=== PATIENT | male | born 1960 | race Two or more races ===

== ENCOUNTER 2021-01-22 10:53 | Emergency (ER) | payer MEDICARE ==
[~2021-01-22] VITALS: Ht 167.6 cm; Wt 81.6 kg
[2021-01-22 12:42] VITALS: BP 129/98
[2021-01-22] MEDS ORDERED: ACETAMINOPHEN 500 MG TAB PO ONE ×2 (13:12→13:15)
== END 2021-01-22 14:16 | disposition home or self-care (01) ==
LOC: ER 10:53
DX: G44.209 Tension-type headache, unspecified, not intractable (principal); H81.10 Benign paroxysmal vertigo, unspecified ear
CPT/HCPCS: 70450; 93005

== ENCOUNTER 2022-01-29 10:57 | Emergency (ER) | payer MEDICARE, OTHER ==
[~2022-01-29] VITALS: Ht 167.6 cm; Wt 77.5 kg
[2022-01-29] MEDS: METOCLOPRAMIDE HCL 5MG/ml INJ 2ml VIAL IV ONE (13:00)
[2022-01-29] MEDS: SODIUM CHLORIDE 0.9% 1,000 ML IV ONE (13:44)
[2022-01-29 13:58] LABS: Calcium 8.4 mg/dL (8.5-10.1); Magnesium 2.4 mg/dL (1.6-2.6); Potassium 3.6 mmol/L (3.5-5.1)
[2022-01-29 14:00] LABS: Basophils # (auto) 0 10 ^3/uL (0-0.2); Basophils % (auto) 0.6 % (0.0-2.0); Bilirubin, Total 0.6 mg/dL (0.2-1.0); Eosinophils # (auto) 0.1 10 ^3/uL (0-0.8); Hematocrit 42.9 % (41.0-53.0); Hemoglobin 14.6 g/dL (13.5-17.5); Lymphocytes # (auto) 2.2 10 ^3/uL (0.4-5.4); Lymphocytes % (auto) 30.6 % (10.0-50.0); Mean Corpuscular Hemoglobin 30.2 pg (28.0-32.0); Mean Corpuscular Volume 88.8 fL (80.0-100.0); Monocytes # (auto) 0.4 10 ^3/uL (0-1.3); Monocytes % (auto) 4.9 % (0.0-12.0); Neutrophils # (auto) 4.6 10 ^3/uL (1.6-8.6); Neutrophils % (auto) 62.9 % (37.0-80.0); Nucleated Red Blood Cells % 0.1 %; Red Blood Cells 4.83 10^6/uL (4.5-5.90); Red Cell Distribution Width 13.9 % (11.8-14.3); Total Protein 7.1 g/dL (6.4-8.2); White Blood Cell 7.3 10^3/uL (4.4-10.8)
[2022-01-29 14:39] LABS: Urine Bacteria NONE SEEN /hpf (None Seen); Urine Blood Negative /uL (Negative); Urine Mucus FEW (None Seen); Urine Specific Gravity 1.036 (1.001-1.035); Urine WBC 1 /hpf (0 - 3)
[2022-01-29 15:36] VITALS: BP 107/74
[2022-01-29] MEDS ORDERED: METO-281 PO (16:38)
[2022-01-29] MEDS ORDERED: TRAM50TA2 PO (16:38)
== END 2022-01-29 17:06 | disposition home or self-care (01) ==
LOC: ER 10:57
DX: K42.9 Umbilical hernia without obstruction or gangrene (principal); K40.20 Bilateral inguinal hernia, without obstruction or gangrene, not specified as recurrent; D29.1 Benign neoplasm of prostate; N28.1 Cyst of kidney, acquired; R35.0 Frequency of micturition
CPT/HCPCS: 36415; 71046; 74176; 80053; 81001; 83690; 83735; 85025; 93005; 96360; 96361; 99285; J7030

== ENCOUNTER 2023-07-10 09:51 | Inpatient (IN) | payer OTHER, MEDICAID ==
[~2023-07-10] VITALS: Ht 167.6 cm; Wt 80.4 kg
[~2023-07-10 09:51] MED LIST: METO-281 PO; TRAM50TA2 PO
[2023-07-10 11:06] LABS: Basophils # (auto) 0.1 10 ^3/uL (0-0.2); Basophils % (auto) 0.9 % (0.0-2.0); Eosinophils # (auto) 0.1 10 ^3/uL (0-0.8); Eosinophils % (auto) 1.1 % (0.0-7.0); Hematocrit 46.4 % (41.0-53.0); Hemoglobin 15.2 g/dL (13.5-17.5); Lymphocytes # (auto) 1.9 10 ^3/uL (0.4-5.4); Lymphocytes % (auto) 30.5 % (10.0-50.0); Mean Corpuscular Hemoglobin 29.5 pg (28.0-32.0); Mean Corpuscular Hgb Conc. 32.8 g/dL (32.0-36.0); Mean Corpuscular Volume 89.9 fL (80.0-100.0); Monocytes # (auto) 0.4 10 ^3/uL (0-1.3); Monocytes % (auto) 5.6 % (0.0-12.0); Neutrophils # (auto) 3.9 10 ^3/uL (1.6-8.6); Neutrophils % (auto) 61.9 % (37.0-80.0); Red Blood Cells 5.17 10^6/uL (4.5-5.90); Red Cell Distribution Width 13.5 % (11.8-14.3); White Blood Cell 6.4 10^3/uL (4.4-10.8)
[2023-07-10 11:33] LABS: Urine Bacteria NONE SEEN /hpf (None Seen); Urine Blood Negative /uL (Negative); Urine Clarity Clear (Clear); Urine Color Yellow (Yellow); Urine Hyaline Cast FEW /lpf (0 - 2); Urine Mucus FEW (None Seen); Urine Protein, UAD Negative (Negative); Urine Specific Gravity 1.021 (1.001-1.035); Urine Urobilinogen Normal (Negative); Urine WBC <1 /hpf (0 - 3); Urine pH 5.5 (5.0-8.0)
[2023-07-10 11:34] LABS: Chloride 108 mmol/L (98-107); Potassium 3.9 mmol/L (3.5-5.1); Sodium 141 mmol/L (136-145)
[2023-07-10 11:35] LABS: Anion Gap 8 (5-15); Carbon Dioxide 25 mmol/L (20-30)
[2023-07-10 11:36] LABS: Calcium 9.4 mg/dL (8.5-10.1)
[2023-07-10 11:41] LABS: BUN/Creatinine Ratio 9.8 (10.0-20.0); Blood Urea Nitrogen 9 mg/dL (9-23); Glucose 122 mg/dL (74-106)
[2023-07-10] MEDS ORDERED: DOCUSATE SOD 100 MG CAP PO PRN (14:30)
[2023-07-10] MEDS ORDERED: ACETAMINOPHEN 325 MG TAB PO PRN (14:30)
[2023-07-10] MEDS ORDERED: ONDANSETRON HCL 4 MG/2 ML VIAL IV PRN (14:30)
[2023-07-10] MEDS ORDERED: TAMS0.4C36 PO (14:45)
[2023-07-10] MEDS ORDERED: PANT40T PO (14:45)
[2023-07-10] MEDS ORDERED: HYDR-4609 PO (14:45)
[2023-07-10 23:38] VITALS: BP 134/79; PULSE 65; RESP 16; TEMP 97.9; O2SAT 98
[2023-07-10] MEDS ORDERED: HYDR-4902 PO (23:46)
[2023-07-10] MEDS ORDERED: LORA5SYP23 PO (23:50)
[2023-07-11] VITALS (7 sets, daily range): BP systolic 94–102; BP diastolic 65–72; PULSE 59–79; RESP 14–17; TEMP 97.7–98.3; O2SAT 94–98
[2023-07-11 06:45] LABS: Alanine Aminotransferase 27 U/L (7-40); Albumin 4.2 g/dL (3.2-4.8); Alkaline Phosphatase 72 U/L (46-116); Anion Gap 8 (5-15); Aspartate Aminotransferase 21 U/L (13-40); BUN/Creatinine Ratio 8.4 (10.0-20.0); Blood Urea Nitrogen 7 mg/dL (9-23); Calcium 9.2 mg/dL (8.5-10.1); Carbon Dioxide 25 mmol/L (20-30); Chloride 108 mmol/L (98-107); Glucose 95 mg/dL (74-106); Potassium 3.6 mmol/L (3.5-5.1); Sodium 141 mmol/L (136-145)
[2023-07-11 06:46] LABS: Bilirubin, Total 1.2 mg/dL (0.2-1.0); Total Protein 6.5 g/dL (5.7-8.2)
[2023-07-11 06:53] LABS: Basophils # (auto) 0 10 ^3/uL (0-0.2); Basophils % (auto) 0.6 % (0.0-2.0); Eosinophils # (auto) 0.2 10 ^3/uL (0-0.8); Eosinophils % (auto) 2.3 % (0.0-7.0); Hematocrit 45.1 % (41.0-53.0); Hemoglobin 15.2 g/dL (13.5-17.5); Lymphocytes # (auto) 2.5 10 ^3/uL (0.4-5.4); Lymphocytes % (auto) 31.6 % (10.0-50.0); Mean Corpuscular Hemoglobin 30.2 pg (28.0-32.0); Mean Corpuscular Hgb Conc. 33.7 g/dL (32.0-36.0); Mean Corpuscular Volume 89.5 fL (80.0-100.0); Monocytes # (auto) 0.5 10 ^3/uL (0-1.3); Monocytes % (auto) 6.2 % (0.0-12.0); Neutrophils # (auto) 4.7 10 ^3/uL (1.6-8.6); Neutrophils % (auto) 59.3 % (37.0-80.0); Nucleated Red Blood Cells % 0.1 %; Red Blood Cells 5.04 10^6/uL (4.5-5.90); Red Cell Distribution Width 13.5 % (11.8-14.3); White Blood Cell 7.9 10^3/uL (4.4-10.8)
[2023-07-11] MEDS: PANTOPRAZOLE 40 MG TAB PO SCH (10:12)
[2023-07-11] MEDS: TAMSULOSIN HYDROCHLORIDE 0.4 MG CAP PO SCH (10:12)
[2023-07-11] MEDS: HYDROcodone-ACET 5/325MG TAB PO PRN ×2 (10:14→16:44)
[2023-07-11 11:46] LABS: INR 1.09 (0.9-1.15); Partial Thromboplastin Time 30.8 SEC (24.5-34.5); Prothrombin Time 11.4 sec (9.3-11.8)
[2023-07-11] MEDS: D5W/SOD CHL 0.45%/KCL 20MEQ 1,000 ML IV SCH (14:43)
[2023-07-12] VITALS (7 sets, daily range): BP systolic 95–122; BP diastolic 59–85; PULSE 68–96; RESP 14–18; TEMP 97.8–98.2; O2SAT 94–97
[2023-07-12] MEDS: D5W/SOD CHL 0.45%/KCL 20MEQ 1,000 ML IV SCH ×4 (04:14→22:36)
[2023-07-12] MEDS: TAMSULOSIN HYDROCHLORIDE 0.4 MG CAP PO SCH (10:00)
[2023-07-12] MEDS: PANTOPRAZOLE 40 MG TAB PO SCH (10:00)
[2023-07-12] MEDS ORDERED: LIDOCAINE W/ EPINEPHRINE 1% 20ML VIAL ONE ×2 (10:28→11:06)
[2023-07-12] MEDS ORDERED: ceFAZolin 2 GM/D5W100ml 100 ML IV ONE (10:51)
[2023-07-12] MEDS ORDERED: BUPIVACAINE 0.25% INJ 50ML VIAL ONE (11:07)
[2023-07-12] MEDS ORDERED: MEPERIDINE HCL (25 MG/ML) 1ML VIAL ONE (11:22)
[2023-07-12] MEDS ORDERED: MIDAZOLAM HCL 2MG/2ML 2ml VIAL (1mg/ml) ONE (11:22)
[2023-07-12] MEDS ORDERED: fentaNYL CITRATE 100 MCG/2 ML VL ONE (11:22)
[2023-07-12] MEDS ORDERED: PROPOFOL 10 MG/ML 20 ML IV ONE (11:42)
[2023-07-12] MEDS ORDERED: DexAMETHasone SOD PHOS 10MG/1ML VIAL INJ ONE (11:42)
[2023-07-12] MEDS ORDERED: ACETAMINOPHEN/CODEINE#3 (300/30mg) TAB PO PRN (12:15)
[2023-07-12] MEDS ORDERED: D5W/SOD CHL 0.45%/KCL 20MEQ 1,000 ML IV SCH (12:15)
[2023-07-12] MEDS ORDERED: ONDANSETRON HCL 4 MG/2 ML VIAL IV PRN (12:45)
[2023-07-12] MEDS ORDERED: ePHEDrine SULFATE 50 MG/ML AMP IV PRN (12:45)
[2023-07-12] MEDS ORDERED: MORPHINE SULFATE 4 MG/ML SYR/VIAL IV PRN (12:45)
[2023-07-12] MEDS ORDERED: LABETALOL HCL 5 MG/ML 4ML SYRINGE IV PRN (12:45)
[2023-07-12] MEDS ORDERED: MIDAZOLAM HCL 2MG/2ML 2ml VIAL (1mg/ml) IV PRN (12:45)
[2023-07-12] MEDS: HYDROmorphone HCL 2 MG/ML VL/or syr IV PRN ×6 (13:01→20:54)
[2023-07-12] MEDS ORDERED: PIPERACILLIN-TAZOB 3.375GM 100 ML IV SCH (14:00)
[2023-07-12] MEDS ORDERED: ceFAZolin 2 GM/D5W100ml 100 ML IV SCH (14:00)
[2023-07-12] MEDS: ceFAZolin 2 GM/D5W100ml 100 ML IV SCH (22:36)
[2023-07-13] VITALS (7 sets, daily range): BP systolic 100–110; BP diastolic 62–72; PULSE 63–91; RESP 16–20; TEMP 97.8–98.5; O2SAT 92–98
[2023-07-13] MEDS: PIPERACILLIN-TAZOB 3.375GM 100 ML IV SCH ×3 (02:07→18:45)
[2023-07-13] MEDS: ceFAZolin 2 GM/D5W100ml 100 ML IV SCH ×2 (06:52→14:55)
[2023-07-13] MEDS: HYDROmorphone HCL 2 MG/ML VL/or syr IV PRN ×2 (08:55→14:55)
[2023-07-13] MEDS: PANTOPRAZOLE 40 MG TAB PO SCH (08:57)
[2023-07-13] MEDS: TAMSULOSIN HYDROCHLORIDE 0.4 MG CAP PO SCH (08:57)
[2023-07-13] MEDS: HYDROcodone-ACET 5/325MG TAB PO PRN (17:03)
[2023-07-13] MEDS: D5W/SOD CHL 0.45%/KCL 20MEQ 1,000 ML IV SCH ×2 (18:42→20:43)
[2023-07-14] MEDS: PIPERACILLIN-TAZOB 3.375GM 100 ML IV SCH (01:52)
[2023-07-14 05:00] VITALS: BP 97/73; PULSE 68; RESP 18; TEMP 98.4; O2SAT 95
[2023-07-14] MEDS: D5W/SOD CHL 0.45%/KCL 20MEQ 1,000 ML IV SCH (05:32)
[2023-07-14 08:00] VITALS: BP 104/70; PULSE 68; RESP 16; TEMP 98; O2SAT 95
[2023-07-14 09:00] VITALS: BP 110/79; PULSE 70; RESP 18; TEMP 98.7; O2SAT 93
[2023-07-14] MEDS ORDERED: METR-344 PO (09:27)
[2023-07-14] MEDS ORDERED: HYDR-4902 PO (09:27)
[2023-07-14] MEDS ORDERED: LEVO500T91 PO (09:27)
[2023-07-14 10:23] VITALS: BP 110/79; PULSE 71; RESP 18; TEMP 98.7; O2SAT 70
== END 2023-07-14 12:36 | disposition home or self-care (01) | DRG 352 ==
LOC: ER 09:51 → OVERFLOW 14:34 → CENTRAL 22:57
PROVIDERS: ADMIT Nurse Practitioner Family; ATTEND Family Medicine
PROC: 0YQ50ZZ Repair Right Inguinal Region, Open Approach (ICD-10-PCS; principal; 2023-07-12 11:23)
DX: K40.30 Unilateral inguinal hernia, with obstruction, without gangrene, not specified as recurrent (principal); N40.0 Benign prostatic hyperplasia without lower urinary tract symptoms; G89.29 Other chronic pain; M54.50 Low back pain, unspecified; Z79.899 Other long term (current) drug therapy
CPT/HCPCS: 36415; 71045; 76705; 80048; 80053; 81001; 85025; 85610; 85730; 88302; G0378; J1100; J2250; J2543; J2704; J3490

== ENCOUNTER 2024-06-26 13:46 | Emergency (ER) | payer OTHER, MEDICAID ==
[~2024-06-26] VITALS: Ht 167.6 cm; Wt 83.3 kg
[~2024-06-26 13:46] MED LIST changes: +HYDR-4902 PO; +LEVO500T91 PO; +LORA5SYP23 PO; -METO-281 PO; +METR-344 PO; +PANT40T PO; +TAMS0.4C39 PO; -TRAM50TA2 PO
--- NOTE | 2024-06-26 14:03 | ED.PDOC ---
SOB-HPI HPI Comments 64y M who presents to the ED for chief complaint of cough.Pt states he has been having cough with associated pain that radiates to his back whenever he takes a deep breath. Pt states he feels something is stuck in his throat and states it feels like mucus and is exacerbating his ability to breathe. Pt denies any recent sick contacts. Pt otherwise denies chest pain, fever, cough, chills, headache, or dizziness. Pt has otherwise stable vitals in the ED. Chief Complaint: Cough Time Seen by MD: 14:01 Primary Care Provider: JOSE Simmons notes: Medications Information Source: Patient Mode of Arrival: Ambulatory Brought in by: self Past Medical History PAST MEDICAL HISTORY: Denies Surgical History: Denies all surgeries Family History Family History: Reviewed,noncontributory to illness Social History Smoker: Non-Smoker Alcohol: Denies ETOH Use Drugs: Denies Drug Use Lives In: Home Constitutional: denies: chills, diaphoresis, fatigue, fever, malaise, sweats, weakness, others EENTM: denies: blurred vision, double vision, ear bleeding, ear discharge, ear drainage, ear pain, ear ringing, eye pain, eye redness, hearing loss, mouth pain, mouth swelling, nasal discharge, nose bleeding, nose congestion, nose pain , photophobia, tearing, throat pain, throat swelling, voice changes, others Respiratory: reports: cough, others (phlegm); denies: hemoptysis, orthopnea, SOB at rest, shortness of breath, SOB with excertion, stridor, wheezing Cardiovascular: denies: chest pain, dizzy spells, diaphoresis, Dyspnea on exertion, edema, irregular heart beat, left arm pain, lightheadedness, palpitations, PND, syncope, others Gastrointestinal: denies: abdomen distended, abdominal pain, blood streaked bowels, constipated, diarrhea, dysphagia, difficulty swallowing, hematemesis, melena, nausea, poor appetite, poor fluid intake, rectal bleeding, rectal pain, vomiting, others Genitourinary: denies: burning, dysuria, flank pain, frequency, hematuria, incontinence, penile discharge, penile sore, pain, testicle pain, testicle swelling, urgency, others Neurological: denies: dizziness, fainting, headache, left sided numbness, left sided weakness, numbness, paresthesia, pre-existing deficit, right sided numbness, right sided weakness, seizure, speech problems, tingling, tremors, weakness, others Musculoskeletal: reports: back pain; denies: gout, joint pain, joint swelling, muscle pain, muscle stiffness, neck pain, others Integumetry: denies: bruises, change in color, change in hair/nails, dryness, laceration, lesions, lumps, rash, wounds, others Allergic/Immunocompromised: denies: Difficulty Healing, Frequent Infections, Hives, Itching, others Hematologic/Lymphatic: denies: anemia, blood clots, easy bleeding, easy bruising, swollen glands, others Endocrine: denies: excessive hunger, excessive sweating, excessive thirst, excessive urination, flushing, intolerance to cold, intolerance to heat, unexplained weight gain, unexplained weight loss, others Psychiatric: denies: anxiety, bipolar disorder, depression, hopeless, panic disorder, schizophrenia, sleepless, suicidal, others All Other Systems: Reviewed and Negative Physical Exam General Appearance: No Apparent Distress, Normal HEENT: Normal ENT Inspection, Pharynx Normal, TMs Normal Neck: Full Range of Motion, Non-Tender, Normal, Normal Inspection Respiratory: Other (clear lungs) Cardiovascular: No Edema, No JVD, No Murmur, No Gallop, Normal Peripheral Pulses, Regular Rate/Rhythm Breast Exam: Deferred Gastrointestinal: No Organomegaly, Non Tender, No Pulsatile Mass, Normal Bowel Sounds, Soft Genitalia: Deferred Pelvic: Deferred Rectal: Deferred Extremities: No calf tenderness, Normal capillary refill, Normal inspection, Normal range of motion, Non-tender, No pedal edema Musculoskeletal : Apperance: Normal Neurologic: Alert, program/music director II-XII nml as Tested, No Motor Deficits, Normal Affect, Normal Mood, No Sensory Deficits Cerebellar Function: Normal Reflexes: Normal Skin: Dry, Normal Color, Warm Lymphatic: No Adenopathy EKG EKG : Pulse Rate (adult): 82 [place]: LAD Cardiac Rhythm: NSR Hypertrophy: None ST: Normal Was a procedure done? Was a procedure done?: No Differential Dx Differential Diagnosis: Bronchitis, Pneumonia, Respiratory Distress, Pharyngitis, URI Comments COVID, Influenza A and B, angina equivalent X-Ray, Labs, Meds, VS Vital Signs Date Time Temp Pulse Resp B/P (MAP) Pulse Ox O2 Delivery O2 Flow Rate FiO2 06/26/24 13:58 98.0 96 20 101/76 (64) 97 [facility] [address] [facility] [address] Ph: [phone] DIAGNOSTIC IMAGING Diagnostic Imaging Report : [id number] Signed PATIENT: AMBER MCKEON ACCT: [id number] UNIT: [id number] : 1960 LOC: ER ROOM / BED: / AGE / SEX: 64 / M ADM STATUS: REG ER SERVICE [id number] ORDERING PHYSICIAN: GANGA WRIGHT MD PROCEDURE(s): CXRP - CHEST PORTABLE REASON: cough, cp ORDER NUMBER(s): [id number], ACCESSION NUMBER(s): [id number] CHEST RADIOGRAPH Indication: cough, cp Technique: Single frontal view of the chest was obtained Comparison: XY CHEST PORTABLE on DOS: 07/11/23 FINDINGS: Lines and Tubes: None Lungs: No focal consolidation. Pleura: No effusion. No pneumothorax. Cardiomediastinal contours: Unremarkable Bones: No acute osseous abnormality. IMPRESSION: No acute cardiopulmonary disease. ATED BY: JANETTE LABOY DO DICTATED DATE/TIME: 06/26/241440 SIGNED BY: JANETTE LABOY DO SIGNED DATE/TIME: 06/26/241440 CC: Time of 1ST Reevaluation: 14:30 Reevaluation 1ST: Unchanged Time of 2ND Reevaluation: 15:48 Reevaluation 2ND: Improved (pt refused norco. he states he took his own because he is with pain management. he is feeling better now) Patient Education/Counseling: Diagnosis, Treatment Family Education/Counseling: No Family Present Additional Information - I reviewed the following notes from patient's past medical encounters: - The following tests were ordered, and results were reviewed by me: (Labs, X- Ray, EKG): chest x-ray - Additional information was gathered from interviewing the following independent Historian: (Family, Other Providers, EMT): none - I reviewed and agreed with the following test results read by other provider: (X-ray, CT, US): radiologist - I discussed treatments and results with medical personnel and: (consultants, family): none pt has been coughing, with a sore throat, it hurts to cough. cxre does not support pneumonia. angina equivalent is an unlikely differential, but i ordered yoselin EKG and was reassured by it's normal findings. he is stable for discharge, i will order tessalon for him Departure 1 Departure Time of Disposition: 16:07 Impression: Primary Impression: Viral syndrome Additional Impression: Chest wall pain Disposition: HOME / SELF CARE / HOMELESS Condition: Good e-Prescriptions Benzonatate (Benzonatate) 200 Mg Cap 1 CAP PO TID, #30 CAP Prov: GANGA WRIGHT MD 06/26/24 Discharged With: Self Critical Care Note Critical Care Time?: No Stability Stability form required: No Heart Score Heart Score: Heart Score Response (Comments) Value History N/A 0 EKG N/A 0 Age N/A 0 Risk Factors N/A 0 Troponin N/A 0 Total 0 I personally scribed for GANGA WRIGHT MD (ROBERTO) on 06/26/24 at 14:03. Electronically submitted by Octavio Woodard ([email or web address]). I personally scribed for GANGA WRIGHT MD (ROBERTO) on 06/26/24 at 14:18. Electronically submitted by Octavio Woodard ([facility] [employer] I personally scribed for GANGA WRIGHT MD (ROBERTO) on 06/26/24 at 14:45. Electronically submitted by Octavio Woodard ([email or web address]). GANGA WRIGHT MD Jun 26, 2024 14:03
[2024-06-26] MEDS: HYDROcodone-ACET 5/325MG TAB PO ONE (14:25)
--- NOTE | 2024-06-26 14:43 | DVH ---
CHEST RADIOGRAPH Indication: cough, cp Technique: Single frontal view of the chest was obtained Comparison: XY CHEST PORTABLE on DOS: 07/11/23 FINDINGS: Lines and Tubes: None Lungs: No focal consolidation. Pleura: No effusion. No pneumothorax. Cardiomediastinal contours: Unremarkable Bones: No acute osseous abnormality. IMPRESSION: No acute cardiopulmonary disease.
[2024-06-26] MEDS ORDERED: BENZ200C64 PO (16:07)
[2024-06-26 16:18] VITALS: BP 106/76; PULSE 86; RESP 16; TEMP 98.6; O2SAT 96
--- NOTE | 2024-06-27 12:48 | ECG ---
[facility] Test Date: 2024-06-26 Test Time: 16:01:33 Pat Name: AMBER MCKEON Department: ER Room: Gender: M Halal Butcher: GRICEL : 1960 Requested By: GANGA WRIGHT Order Number: [id number] Reading MD: Mynor Burroughs Measurements Intervals [place] Rate: 82 P: 42 ND: 148 QRS: -38 QRSD: 89 T: 22 QT: 334 QTc: 390 Interpretive Statements Sinus rhythm Probable left atrial enlargement Left axis deviation Abnormal R-wave progression, late transition Electronically Signed On 06-27-2024 14:19:52 PST by Mynor Burroughs Please click the below link to view image of tracing.
== END 2024-06-26 16:20 | disposition home or self-care (01) ==
LOC: ER 13:46
DX: B34.9 Viral infection, unspecified (principal); R07.89 Other chest pain
CPT/HCPCS: 71045; 93005

== ENCOUNTER 2024-12-08 19:50 | Emergency (ER) | payer OTHER, MEDICAID ==
[~2024-12-08] VITALS: Ht 167.6 cm; Wt 83.4 kg
[~2024-12-08 19:50] MED LIST changes: +BENZ200C64 PO
--- NOTE | 2024-12-08 20:46 | ED.PDOC ---
History of Present Illness HPI Comments 64 y/o M presents with right groin pain, that began suddenly and unprovoked 5-6 hours prior to arrival. Patient reports on pain being constant and radiating to his RLQ and, occasionally, to his right-testicle. Pain is worse in RLQ area and further radiates to his right lower back area. No recent heavy lifting or strenuous activities endorsed. Patient admits to taking his [place] medication for chronic back pain prior to arrival, with temporary relief. Previous history of right inguinal hernia s/p hernia repair in 2023. He endorses on also having associated dry mouth. Last bowel movement reported to be an hour prior to arrival, with no abnormalities. Patient denies having any urinary symptoms, nausea, vomiting, fever, chills, or further associated symptoms. Chief Complaint: Abdominal Pain Time Seen by MD: 20:15 Primary Care Provider: JOSE Reviewed Notes: Nurses Notes, Medications, Allergies Allergies: Coded Allergies: NO KNOWN ALLERGIES (Unverified , 01/22/21) Home Meds Active Scripts Benzonatate (Benzonatate) 200 Mg Cap, 1 CAP PO TID, #30 CAP Prov:GANGA WRIGHT MD 06/26/24 Hydrocodone-Acetaminophen (Hydrocodone Bitartrate/AC 5-325 mg) 1 Tab Tab, 1 TAB PO TID PRN, #30 TAB Prov:JORI ORTIZ MD 07/14/23 Metronidazole (Flagyl) 500 Mg Tab, 1 TAB PO TID, #30 TAB Prov:JORI ORTIZ MD 07/14/23 Levofloxacin Hemihydrate (LEVAQUIN 500 MG) 500 Mg Tab, 1 TAB PO DAILY, #10 TAB Prov:JORI ORTIZ MD 07/14/23 Reported Medications Loratadine (Claritin) 5 Mg/5 Ml Syp, 5 ML PO DAILY, #150 ML 2 Refills 07/10/23 Hydrocodone-Acetaminophen (Hydrocodone Bitartrate/AC 5-325 mg) 1 Tab Tab, 1 TAB PO, TAB 07/10/23 Tamsulosin Hcl (Tamsulosin Hcl) 0.4 Mg Cap, 1 CAP PO DAILY 07/10/23 Pantoprazole Sodium Sesquihydr (Pantoprazole Sodium) 40 Mg Tab, 1 TAB PO DAILY 07/10/23 Information Source: Patient Mode of Arrival: Ambulatory Severity: Moderate Timing: Hours Duration: Since onset Prehospital treatment: Pain Meds Review of Systems: REVIEW OF SYSTEMS: No fever, no chills, or fatigue HEENT: Dry mouth. No sore throat, no earache, no congestion, no neck pain. Cardiac: No chest pain. No palpitations. Lungs: No shortness of breath, no cough. GI: RLQ pain. no nausea, no vomiting, no diarrhea, no constipation : Right groin pain. Right testicular pain. No dysuria, frequency, or urgency. No hematuria. Musculoskeletal: Right lower back pain. no joint pain , no joint swelling, no extremity edema. Skin: No rash, no itching. Neuro: No headache, no dizziness, no weakness Vital Signs Vital Signs Date Time Temp Pulse Resp B/P (MAP) Pulse Ox O2 Delivery O2 Flow Rate FiO2 12/08/24 21:59 97.6 57 16 123/81 (95) 97 97.6 12/08/24 21:03 Room Air* 0 21 Physical Exam General: Awake, alert and oriented. No acute distress. Skin: Skin in warm, dry and intact. Appropriate color for ethnicity. HEENT: The head is normocephalic and atraumatic. Conjunctivae are clear without exudates or hemorrhage. Sclera is non-icteric. EOM are intact. No signs of nystagmus. Eyelids are normal in appearance without swelling or lesions. Oral mucosa is pink and moist Neck: The neck is supple with normal range of motion. No JVD. Cardiac: Heart rate and rhythm are normal. No murmurs, gallops, or rubs are auscultated. Respiratory: No signs of respiratory distress. Lung sounds are clear in all lobes bilaterally without rales, rhonchi, or wheezes. Abdominal: RLQ tenderness; no palpable hernia; otherwise, rest of abdomen is soft, non-tender without distention, guarding or rigidity. Bowel sounds are present and normoactive in all four quadrants. Genitourinary: No testicular swelling or penile discharge . Extremities: Upper and lower extremities are atraumatic in appearance without deformity or edema. Neurological: The patient is awake, alert and oriented to person, place, and time with normal speech. Speech is clear. There is no facial asymmetry. Psychiatric: Appropriate mood and affect. Good judgement and insight. Past Medical History Past Medical History (Other): Inguinal hernia status post hernia repair in 2023 Unspecified growth on left kidney Surgical History: Hernia Repair Surgical History (Other): Lower back surgery Family History Family History: Reviewed,noncontributory to illness Social History Smoker: Non-Smoker Alcohol: Denies ETOH Use Drugs: Denies Drug Use Lives In: Home Was a procedure done? Was a procedure done?: No Differential Dx Considerations may include: Differential diagnoses considered include: Abdominal aortic aneurysm, [place], esophageal rupture, intestinal obstruction, mesenteric ischemia, perforated viscus or solid organ rupture, CHF with hepatomegaly, pneumonia, abscess, appendicitis, biliary disease, diverticulitis, gastritis, gastroenteritis, hepatitis, hernia, inflammatory bowel disease, pancreatitis, peptic ulcer disease, urinary tract infection, ureteral colic, constipation, GERD, irritable syndrome, abdominal wall pain, nonspecific abdominal pain, herpes zoster, nephrolithiasis. X-Ray, Labs, Meds, VS Vital Signs Date Time Temp Pulse Resp B/P (MAP) Pulse Ox O2 Delivery O2 Flow Rate FiO2 12/08/24 21:59 97.6 57 16 123/81 (95) 97 97.6 12/08/24 21:03 18 96 Room Air* 0 21 12/08/24 20:51 97.7 63 18 126/79 (95) 97 97.7 12/08/24 20:05 97.5 65 16 145/90 (108) 95 97.5 Lab Test 12/08/24 20:27 12/08/24 20:08 Range/Units White Blood Count 8.8 4.4-10.8 10^3/uL Red Blood Count 5.09 4.5-5.90 10^6/uL Hemoglobin 15.3 13.5-17.5 g/dL Hematocrit 45.0 41.0-53.0 % Mean Corpuscular Volume 88.5 80.0-100.0 fL Mean Corpuscular Hemoglobin 30.1 28.0-32.0 pg Mean Corpuscular Hemoglobin Concent 34.1 32.0-36.0 g/dL Red Cell Distribution Width 13.1 11.8-14.3 % Platelet Count 200 140-450 10^3/uL Mean Platelet Volume 8.9 6.9-10.8 fL Neutrophils (%) (Auto) 54.8 37.0-80.0 % Lymphocytes (%) (Auto) 36.8 10.0-50.0 % Monocytes (%) (Auto) 6.3 0.0-12.0 % Eosinophils (%) (Auto) 1.4 0.0-7.0 % Basophils (%) (Auto) 0.7 0.0-2.0 % Neutrophils # (Auto) 4.8 1.6-8.6 10 ^3/uL Lymphocytes # (Auto) 3.3 0.4-5.4 10 ^3/uL Monocytes # (Auto) 0.6 0-1.3 10 ^3/uL Eosinophils # (Auto) 0.1 0-0.8 10 ^3/uL Basophils # (Auto) 0.1 0-0.2 10 ^3/uL Nucleated Red Blood Cells 0.1 % Sodium Level 145 136-145 mmol/L Potassium Level 3.6 3.5-5.1 mmol/L Chloride Level 110 H 98-107 mmol/L Carbon Dioxide Level 25 20-31 mmol/L Anion Gap 10 5-15 Blood Urea Nitrogen 14 9-23 mg/dL Creatinine 0.95 0.700-1.30 mg/dL Glomerular Filtration Rate Calc 89 >90 mL/min BUN/Creatinine Ratio 14.7 10.0-20.0 Serum Glucose 88 74-106 mg/dL Calcium Level 9.5 8.7-10.4 mg/dL Urine Color Light-yellow Yellow Urine Clarity Clear Clear Urine pH 6.0 5.0-9.0 Urine Specific [place] > 1.050 H 1.001-1.035 Urine Protein Negative Negative Urine Ketones Negative Negative Urine Blood Negative Negative /uL Urine Nitrite Negative Negative Urine Bilirubin Negative Negative Urine Urobilinogen Normal Negative mg/dL Urine Leukocyte Esterase Negative Negative /uL Urine RBC <1 0 - 3 /hpf Urine Microscopic WBC < 1 0-3 /HPF Urine Squamous Epithelial Cells Few <5 /hpf Urine Bacteria None seen None Seen /hpf Urine Mucus Few None Seen Urine Glucose Normal Normal mg/dL [address] [address] Ph: [phone] DIAGNOSTIC IMAGING Diagnostic Imaging Report : [id number] Signed PATIENT: AMBER MCKEON ACCT: [id number] UNIT: [id number] : 1960 LOC: ER ROOM / BED: / AGE / SEX: 64 / M ADM STATUS: REG ER SERVICE 17 ORDERING PHYSICIAN: AGNES SUAZO MD PROCEDURE(s): ABPLIV - CT AB PEL WITH IV CON ONLY REASON: rlq pain ORDER NUMBER(s): [id number], ACCESSION NUMBER(s): [id number] COMPUTERIZED TOMOGRAPHY ABDOMEN AND PELVIS WITH CONTRAST REASON FOR EXAM: rlq pain COMPARISON: CT abdomen/ pelvis 01/29/2022 TECHNIQUE: The exam was performed on a Multidetector scanner. Spiral scans were acquired from the diaphragm to the symphysis pubis after administration of omnipaque 300 contrast. Images were constructed with a slice thickness of 5 mm. 2-D coronal and sagittal reformatted images were provided. Automated exposure control was used. LABS: Current laboratory values provided were reviewed or point of care testing was performed to verify the patient meets current departmental guidelines for contrast media administration per protocol. CONTRAST ADMINISTRATION: 100 mL omnipaque 300 intravenously MEDICATIONS: The patient's medication list was reviewed. RADIATION DOSE: CTDI: 16 mGy DLP: 833 mGy-cm FINDINGS: There is a stable 4 mm pleural-based nodule in the right middle lobe, likely an intrapulmonary lymph node which requires no dedicated follow-up. There is mild dependent atelectasis in bilateral lower lobes of the lungs. There is no pleural effusion. There is no pericardial effusion. The spleen is not enlarged. The liver is normal in size and contour. No focal hepatic lesion is identified. The portal vein is patent. No calcified gallstone is identified. The pancreas is within normal limits. The adrenal glands are normal. The kidneys enhance symmetrically. There is duplicated left collecting system. No solid renal mass is identified. There is a 3 mm nonobstructive calculus at the superior pole of the left kidney. The urinary bladder is decompressed and is grossly unremarkable. There is no abdominal aortic aneurysm. There is no pathologic lymphadenopathy in the abdomen or pelvis by size criteria. The prostate is enl arged. There is mild sigmoid diverticulosis without evidence of diverticulitis. The colonic stool burden is small. The appendix is normal. There is no pathologic distention of the small bowel to suggest obstruction. No free fluid is identified in the abdomen or pelvis. No acute osseous abnormality is identified. There is transpedicular fusion L3-L5. IMPRESSION: Normal appendix. No evidence of bowel obstruction. Duplicated left collecting system. Nonobstructive 3 mm left upper pole renal calculus. ATED BY: SANTIAGO VELASQUEZ MD DICTATED DATE/TIME: 12/08/242139 SIGNED BY: SANTIAGO VELASQUEZ MD SIGNED DATE/TIME: 12/08/242139 CC: Time of 1ST Reevaluation: 20:45 Reevaluation 1ST: Unchanged Patient Education/Counseling: Treatment, Need For Follow Up Family Education/Counseling: No Family Present Departure 1 Departure Time of Disposition: 22:48 Impression: Primary Impression: Right sided abdominal pain Disposition: HOME / SELF CARE / HOMELESS Condition: Stable Additional Instructions: ED DISCHARGE INSTRUCTIONS Instructions: Please read all instructions provided in this packet carefully. Although you have been discharged from the Emergency Department, this does not mean that you have a "clean bill of health". []No definitive diagnosis for your symptoms has been made today. It is possible that you are in the process of developing a serious illness. This is why you must return to the ED without fail if any new or worsening symptoms (especially if your symptoms include chest pain, trouble breathing, abdominal pain, fever, headache, confusion, trouble seeing, or trouble walking) It is also very important that you see a primary care doctor within the next 1-3 days to follow up. If you are unable to get an appointment, return to the ED for re-evaluation. A copy of your CAT scan report is included below: Abdominal Pain: Care Instructions Overview Abdominal pain has many possible causes. Some aren't serious and get better on their own in a few days. Others need more testing and treatment. If your pain continues or gets worse, you need to be rechecked and may need more tests to find out what is wrong. You may need surgery to correct the problem. Don't ignore new symptoms, such as fever, nausea and vomiting, urination problems, pain that gets worse, and dizziness. These may be signs of a more serious problem. If you are not getting better, you may need more tests or treatment. The doctor has checked you carefully, but problems can develop later. If you notice any problems or new symptoms, get medical treatment right away. Follow-up care is a grover part of your treatment and safety. Be sure to make and go to all appointments, and call your doctor if you are having problems. It's also a good idea to know your test results and keep a list of the medicines you take. How can you care for yourself at home? Rest until you feel better. To prevent dehydration, drink plenty of fluids. Choose water and other clear liquids until you feel better. If you have kidney, heart, or liver disease and have to limit fluids, talk with your doctor before you increase the amount of fluids you drink. When you feel like eating, start with small amounts. Do not have alcohol, caffeine, or spicy, hot, or high-fat foods for a day or two. Avoid anti-inflammatory medicines such as aspirin, ibuprofen (Advil, Motrin), and naproxen (Aleve). These can cause stomach upset. Talk to your doctor if you take daily aspirin for another health problem. When should you call for help? Call 911 anytime you think you may need emergency care. For example, call if: You passed out (lost consciousness). You pass maroon or very bloody stools. You vomit blood or what looks like coffee grounds. You have severe belly pain. Call your doctor now or seek immediate medical care if: Your pain gets worse, especially if it becomes focused in one area of your belly. You have a new or higher fever. Your stools are black and look like tar, or they have streaks of blood. You have unexpected vaginal bleeding. You have symptoms of a urinary tract infection. These may include: Pain when you urinate. Urinating more often than usual. Blood in your urine. You are dizzy or lightheaded, or you feel like you may faint. Watch closely for changes in your health, and be sure to contact your doctor if: You are not getting better as expected. Credits for Abdominal Pain: Care Instructions Current as of: April 20, 2023 Author: [employer] Staff Clinical Review Board [employer] education is reviewed by a team that includes physicians, nurses, advanced practitioners, registered dieticians, and other healthcare professionals. COMPUTERIZED TOMOGRAPHY ABDOMEN AND PELVIS WITH CONTRAST REASON FOR EXAM: rlq pain COMPARISON: CT abdomen/ pelvis 01/29/2022 TECHNIQUE: The exam was performed on a Multidetector scanner. Spiral scans were acquired from the diaphragm to the symphysis pubis after administration of omnipaque 300 contrast. Images were constructed with a slice thickness of 5 mm. 2-D coronal and sagittal reformatted images were provided. Automated exposure control was used. LABS: Current laboratory values provided were reviewed or point of care testing was performed to verify the patient meets current departmental guidelines for contrast media administration per protocol. CONTRAST ADMINISTRATION: 100 mL omnipaque 300 intravenously MEDICATIONS: The patient's medication list was reviewed. RADIATION DOSE: CTDI: 16 mGy DLP: 833 mGy-cm FINDINGS: There is a stable 4 mm pleural-based nodule in the right middle lobe, likely an intrapulmonary lymph node which requires no dedicated follow-up. There is mild dependent atelectasis in bilateral lower lobes of the lungs. There is no pleural effusion. There is no pericardial effusion. The spleen is not enlarged. The liver is normal in size and contour. No focal hepatic lesion is identified. The portal vein is patent. No calcified gallstone is identified. The pancreas is within normal limits. The adrenal glands are normal. The kidneys enhance symmetrically. There is duplicated left collecting system. No solid renal mass is identified. There is a 3 mm nonobstructive calculus at the superior pole of the left kidney. The urinary bladder is decompressed and is grossly unremarkable. There is no abdominal aortic aneurysm. There is no pathologic lymphadenopathy in the abdomen or pelvis by size criteria. The prostate is enlarged. There is mild sigmoid diverticulosis without evidence of diverticulitis. The colonic stool burden is small. The appendix is normal. There is no pathologic distention of the small bowel to suggest obstruction. No free fluid is identified in the abdomen or pelvis. No acute osseous abnormality is identified. There is transpedicular fusion L3-L5. IMPRESSION: Normal appendix. No evidence of bowel obstruction. Duplicated left collecting system. Nonobstructive 3 mm left upper pole renal calculus. ATED BY: SANTIAGO VELASQUEZ MD DICTATED DATE/TIME: 12/08/242139 SIGNED BY: SANTIAGO VELASQUEZ MD SIGNED DATE/TIME: 12/08/242139 CC: Comments 64-year-old male presented with abdominal pain. No peritoneal signs on abdominal exam. No evidence of acute abdomen at this time. patient is well appearing. Labs show no leukocytosis or elevation of LFTs. Imaging shows no acute process explaining patient's symptoms. Patient is afebrile. Patient is not hypotensive. Low suspicion for acute hepatobiliary disease (including acute cholecystitis, acute pancreatitis, PUD (including perforation), acute infectious process (pneumonia, hepatitis, pyelonephritis), acute appendicitis, vascular catastrophe, bowel obstructions, viscous perforation. Presentation not consistent with other acute, emergent causes of abdominal pain at this time. Extensive evaluation was performed in attempt to identify or rule out: (See differential diagnosis section) The following tests were ordered, and results were reviewed by me and discussed with patient: (See diagnostic results section) The following test were independently interpreted by me: N/A I reviewed and agreed with the following test results read by other providers: N/A I reviewed the following notes from the pt's past medical encounters: January 29, 2022, July 10, 2023, and June 26, 2024 encounters for right-sided abdominal pain, abdominal pain for 1 week, and viral syndrome, respectively. Additional information was gathered from interviewing the following independent historians: N/A Discussion of management or test interpretation with external physician/other qualified health managed care liaison: N/A Drug therapy requiring intensive monitoring for toxicity: IV contrast Parenteral controlled substances: N/A Decision regarding elective major surgery with identified patient or procedure risk factors: N/A Decision regarding emergency major surgery: N/A Decision not to resuscitate or to de-escalate care because of poor prognosis: N/A Diagnosis or treatment significantly limited by social determinants of health: N/A Decision regarding hospitalization or escalation of hospital level of care: Risks and benefits of admission for further treatment of patient's condition was considered however due to patient's stable condition patient will be discharged to follow up closely or return to care for worsening of condition or inability to follow up. Critical Care Note Critical Care Time?: No Stability Stability form required: No Heart Score Heart Score: Heart Score Response (Comments) Value History N/A 0 EKG N/A 0 Age N/A 0 Risk Factors N/A 0 Troponin N/A 0 Total 0 I personally scribed for AGNES SUAZO MD ([email or web address]) on 12/08/24 at 20:46. Electronically submitted by Gordon Ingram ([email or web address]). I personally scribed for AGNES SUAZO MD ([email or web address]) on 12/08/24 at 22:45. Electronically submitted by Gordon Ingram ([email or web address]). AGNES SUAZO MD Dec 08, 2024 20:46
[2024-12-08 20:47] LABS: Basophils # (auto) 0.1 10 ^3/uL (0-0.2); Basophils % (auto) 0.7 % (0.0-2.0); Eosinophils # (auto) 0.1 10 ^3/uL (0-0.8); Eosinophils % (auto) 1.4 % (0.0-7.0); Hemoglobin 15.3 g/dL (13.5-17.5); Lymphocytes # (auto) 3.3 10 ^3/uL (0.4-5.4); Lymphocytes % (auto) 36.8 % (10.0-50.0); Mean Corpuscular Hemoglobin 30.1 pg (28.0-32.0); Mean Corpuscular Hgb Conc. 34.1 g/dL (32.0-36.0); Mean Corpuscular Volume 88.5 fL (80.0-100.0); Monocytes # (auto) 0.6 10 ^3/uL (0-1.3); Monocytes % (auto) 6.3 % (0.0-12.0); Neutrophils # (auto) 4.8 10 ^3/uL (1.6-8.6); Neutrophils % (auto) 54.8 % (37.0-80.0); Nucleated Red Blood Cells % 0.1 %; Platelet Count (auto) 200 10^3/uL (140-450); Red Blood Cells 5.09 10^6/uL (4.5-5.90); Red Cell Distribution Width 13.1 % (11.8-14.3); White Blood Cell 8.8 10^3/uL (4.4-10.8)
[2024-12-08 20:57] LABS: Potassium 3.6 mmol/L (3.5-5.1)
[2024-12-08 20:58] LABS: Anion Gap 10 (5-15); Calcium 9.5 mg/dL (8.7-10.4); Carbon Dioxide 25 mmol/L (20-31)
[2024-12-08 21:03] VITALS: RESP 18; O2SAT 96
[2024-12-08 21:03] LABS: BUN/Creatinine Ratio 14.7 (10.0-20.0); Blood Urea Nitrogen 14 mg/dL (9-23); Glucose 88 mg/dL (74-106)
[2024-12-08 21:04] LABS: Chloride 110 mmol/L (98-107); Sodium 145 mmol/L (136-145)
[2024-12-08 21:30] LABS: Urine Bacteria None Seen /hpf (None Seen)
--- NOTE | 2024-12-08 21:43 | DVH ---
COMPUTERIZED TOMOGRAPHY ABDOMEN AND PELVIS WITH CONTRAST REASON FOR EXAM: rlq pain COMPARISON: CT abdomen/ pelvis 01/29/2022 TECHNIQUE: The exam was performed on a Multidetector scanner. Spiral scans were acquired from the kirsten phragm to the symphysis pubis after administration of omnipaque 300 contrast. Images were constructed with a slice thickness of 5 mm. 2-D coronal and sagittal reformatted images were provided. Automated exposure control was used. LABS: Current laboratory values provided were reviewed or point of care testing was performed to cassandra ozzy the patient meets current departmental guidelines for contrast media administration per protocol. CONTRAST ADMINISTRATION: 100 mL omnipaque 300 intravenously MEDICATIONS: The patient's medication list was reviewed. RADIATION DOSE: CTDI: 16 mGy DLP: 833 mGy-cm FINDINGS: There is a stable 4 mm pleural-based nodule in the right middle lobe, likely an intrapulmonary lymph node which requires no dedicated follow-up. There is mild dependent atelectasis in bilateral lower lo bes of the lungs. There is no pleural effusion. There is no pericardial effusion. The spleen is not enlarged. The liver is normal in size and contour. No focal hepatic lesion is identified. The mahendra l vein is patent. No calcified gallstone is identified. The pancreas is within normal limits. The ad renal glands are normal. The kidneys enhance symmetrically. There is duplicated left collecting syst em. No solid renal mass is identified. There is a 3 mm nonobstructive calculus at the superior pole o f the left kidney. The urinary bladder is decompressed and is grossly unremarkable. There is no abdom inal aortic aneurysm. There is no pathologic lymphadenopathy in the abdomen or pelvis by size criteri a. The prostate is enlarged. There is mild sigmoid diverticulosis without evidence of diverticulitis . The colonic stool burden is small. The appendix is normal. There is no pathologic distention of th e small bowel to suggest obstruction. No free fluid is identified in the abdomen or pelvis. No acute osseous abnormality is identified. There is transpedicular fusion L3-L5. IMPRESSION: Normal appendix. No evidence of bowel obstruction. Duplicated left collecting system. Nonobstructive 3 mm left upper pole renal calculus.
[2024-12-08] MEDS: IOHEXOL 300 MG/ML 100ML BOTTLE IJ ONE (21:44)
[2024-12-08 21:48] LABS: Urine Blood Negative /uL (Negative); Urine Clarity Clear (Clear); Urine Color Light-Yellow (Yellow); Urine Mucus FEW (None Seen); Urine Protein, UAD Negative (Negative); Urine Squamous Epithelial Cell FEW /hpf (<5); Urine Urobilinogen Normal (Negative); Urine WBC < 1 /HPF (0-3)
[2024-12-08 21:49] LABS: Urine Specific Gravity > 1.050 (1.001-1.035)
[2024-12-08 21:59] VITALS: BP 123/81; PULSE 57; RESP 16; TEMP 97.6; O2SAT 97
== END 2024-12-08 23:25 | disposition home or self-care (01) ==
LOC: ER 19:50
DX: R10.31 Right lower quadrant pain (principal); Z98.890 Other specified postprocedural states; Z79.899 Other long term (current) drug therapy; Z87.898 Personal history of other specified conditions
CPT/HCPCS: 36415; 74177; 80048; 81001; 85025; 99285; Q9967

== ENCOUNTER 2025-04-25 06:36 | Emergency (ER) | payer OTHER, MEDICAID ==
[~2025-04-25] VITALS: Ht 167.6 cm; Wt 87.0 kg
[2025-04-25 06:36] VITALS: BP 139/88; PULSE 62; RESP 18; TEMP 98; O2SAT 97
[2025-04-25 07:42] LABS: Hematocrit 42.0 % (41.0-53.0); Hemoglobin 14.2 g/dL (13.5-17.5); Mean Corpuscular Hemoglobin 30.3 pg (28.0-32.0); Mean Corpuscular Volume 89.8 fL (80.0-100.0); Nucleated Red Blood Cells % 0.0 %
--- NOTE | 2025-04-25 07:46 | ED.PDOC ---
General HPI Comments A 64 YEAR OLD MALE PRESENTS TO THE ED WITH COMPLAINT OF LEFT FLANK PAIN. PATIENT STATES HE BEGAN TO EXPERIENCE LEFT FLANK PAIN THAT RADIATES TO HIS LEFT MIDDLE BACK TODAY AT ABOUT 0300. PATIENT NOTES HE HAS A HISTORY OF RENAL STONES IN THE PAST. PATIENT DENIES DYSURIA, HEMATURIA, FEVER, CHILLS, SHORTNESS OF BREATH, CHEST PAIN, ABDOMINAL PAIN, NAUSEA, VOMITING, HEADACHE, OR OTHER COMPLAINTS. NO OTHER SYMPTOMS OR MODIFYING FACTORS AT THIS TIME. PATIENT IS ALERT, ORIENTED X 4, AND HAS STEADY GAIT. Chief Complaint: Flank Pain Time Seen by MD: 06:50 Primary Care Provider: JOSE Reviewed notes: Nurses Notes, Medications, Allergies Allergies: Coded Allergies: NO KNOWN ALLERGIES (Unverified , 01/22/21) Home Meds Active Scripts Benzonatate (Benzonatate) 200 Mg Cap, 1 CAP PO TID, #30 CAP Prov:GANGA WRIGHT MD 06/26/24 Hydrocodone-Acetaminophen (Hydrocodone Bitartrate/AC 5-325 mg) 1 Tab Tab, 1 TAB PO TID PRN, #30 TAB Prov:JORI ORTIZ MD 07/14/23 Metronidazole (Flagyl) 500 Mg Tab, 1 TAB PO TID, #30 TAB Prov:JORI ORTIZ MD 07/14/23 Levofloxacin Hemihydrate (LEVAQUIN 500 MG) 500 Mg Tab, 1 TAB PO DAILY, #10 TAB Prov:JORI ORTIZ MD 07/14/23 Reported Medications Loratadine (Claritin) 5 Mg/5 Ml Syp, 5 ML PO DAILY, #150 ML 2 Refills 07/10/23 Hydrocodone-Acetaminophen (Hydrocodone Bitartrate/AC 5-325 mg) 1 Tab Tab, 1 TAB PO, TAB 07/10/23 Tamsulosin Hcl (Tamsulosin Hcl) 0.4 Mg Cap, 1 CAP PO DAILY 07/10/23 Pantoprazole Sodium Sesquihydr (Pantoprazole Sodium) 40 Mg Tab, 1 TAB PO DAILY 07/10/23 Information Source: Patient Mode of Arrival: Ambulatory Severity: Moderate Inability to void: None Timing: Hours Duration: Since onset, Hours Prehospital treatment: None Onset: Spontaneous Symptoms: Other (FLANK PAIN) History of: Kidney stone Location: (L)Flank Penile discharge: None Modifying factors: None Past Medical History Past Medical History (Other): BPH Surgical History: Hernia Repair Family History Family History: Reviewed,noncontributory to illness Social History Smoker: Non-Smoker Alcohol: Denies ETOH Use Drugs: Denies Drug Use Lives In: Home Constitutional: denies: chills, diaphoresis, fatigue, fever, malaise, sweats, weakness, others EENTM: denies: blurred vision, double vision, ear bleeding, ear discharge, ear drainage, ear pain, ear ringing, eye pain, eye redness, hearing loss, mouth pain, mouth swelling, nasal discharge, nose bleeding, nose congestion, nose pain, photophobia, tearing, throat pain, throat swelling, voice changes, others Respiratory: denies: cough, hemoptysis, orthopnea, SOB at rest, shortness of breath, SOB with excertion, stridor, wheezing, others Cardiovascular: denies: chest pain, dizzy spells, diaphoresis, Dyspnea on exertion, edema, irregular heart beat, left arm pain, lightheadedness, palpitations, PND, syncope, others Gastrointestinal: reports: nausea; denies: abdomen distended, abdominal pain, blood streaked bowels, constipated, diarrhea, dysphagia, difficulty swallowing, hematemesis, melena, poor appetite, poor fluid intake, rectal bleeding, rectal pain, vomiting, others Genitourinary: reports: flank pain; denies: burning, dysuria, frequency, hematuria, incontinence, penile discharge, penile sore, pain, testicle pain, testicle swelling, urgency, others Neurological: denies: dizziness, fainting, headache, left sided numbness, left sided weakness, numbness, paresthesia, pre-existing deficit, right sided numbness, right sided weakness, seizure, speech problems, tingling, tremors, weakness, others Musculoskeletal: denies: back pain, gout, joint pain, joint swelling, muscle pain, muscle stiffness, neck pain, others Integumetry: denies: bruises, change in color, change in hair/nails, dryness, laceration, lesions, lumps, rash, wounds, others Allergic/Immunocompromised: denies: Difficulty Healing, Frequent Infections, Hives, Itching, others Hematologic/Lymphatic: denies: anemia, blood clots, easy bleeding, easy bruising, swollen glands, others Endocrine: denies: excessive hunger, excessive sweating, excessive thirst, excessive urination, flushing, intolerance to cold, intolerance to heat, unexplained weight gain, unexplained weight loss, others Psychiatric: denies: anxiety, bipolar disorder, depression, hopeless, panic disorder, schizophrenia, sleepless, suicidal, others All Other Systems: Reviewed and Negative Physical Exam General Appearance: No Apparent Distress, Normal HEENT: Normal ENT Inspection, PERRL/EOMI, Pharynx Normal, TMs Normal Neck: Full Range of Motion, Non-Tender, Normal, Normal Inspection Respiratory: Chest Non-Tender, Lungs Clear, No Accessory Muscle Use, No Respiratory Distress, Normal Breath Sounds Cardiovascular: No Edema, No JVD, No Murmur, No Gallop, Normal Peripheral Pulses, Regular Rate/Rhythm Breast Exam: Deferred Gastrointestinal: LLQ, No Organomegaly, No Pulsatile Mass, Normal Bowel Sounds, Soft, Tenderness (LEFT LOWER ABD TO LEFT LOWER BACK, NO GUARDING AND REBOUND TENDERNESS. ) Genitalia: Deferred Pelvic: Normal External Exam Rectal: Deferred Extremities: No calf tenderness, Normal capillary refill, Normal inspection, Normal range of motion, Non-tender, No pedal edema Musculoskeletal : Apperance: Normal Neurologic: Alert, cylinder grinder II-XII nml as Tested, No Motor Deficits, Normal Affect, Normal Mood, No Sensory Deficits Cerebellar Function: Normal Reflexes: Normal Skin: Dry, Normal Color, Warm Peripheral Pulses: 2+ carotid (R), 2+ carotid (L) Lymphatic: No Adenopathy Was a procedure done? Was a procedure done?: No Differential Diagnosis Kidney stone (Female): N/A Kidney stone (Male): DJD, Renal failure, Strain, Urolithiasis, Urinary tract infection Penile/Scrotal: N/A Urinary Problem (Male): N/A Urinary Problem (Female): N/A X-Ray, Labs, Meds, VS Vital Signs Date Time Temp Pulse Resp B/P (MAP) Pulse Ox O2 Delivery O2 Flow Rate FiO2 04/25/25 06:36 98.0 62 18 139/88 97 98.0 Lab Test 04/25/25 07:33 04/25/25 07:14 Range/Units Urine Color Light-yellow Yellow Urine Clarity Clear Clear Urine pH 6.0 5.0-9.0 Urine Specific [place] 1.023 1.001-1.035 Urine Protein Negative Negative Urine Ketones Negative Negative Urine Blood Negative Negative /uL Urine Nitrite Negative Negative Urine Bilirubin Negative Negative Urine Urobilinogen Normal Negative mg/dL Urine Leukocyte Esterase Negative Negative /uL Urine RBC <1 0 - 3 /hpf Urine Microscopic WBC 1 0-3 /HPF Urine Squamous Epithelial Cells Few <5 /hpf Urine Bacteria None seen None Seen /hpf Urine Glucose Normal Normal mg/dL White Blood Count 6.7 4.4-10.8 10^3/uL Red Blood Count 4.68 4.5-5.90 10^6/uL Hemoglobin 14.2 13.5-17.5 g/dL Hematocrit 42.0 41.0-53.0 % Mean Corpuscular Volume 89.8 80.0-100.0 fL Mean Corpuscular Hemoglobin 30.3 28.0-32.0 pg Mean Corpuscular Hemoglobin Concent 33.7 32.0-36.0 g/dL Red Cell Distribution Width 13.5 11.8-14.3 % Platelet Count 192 140-450 10^3/uL Mean Platelet Volume 8.8 6.9-10.8 fL Neutrophils (%) (Auto) 63.7 37.0-80.0 % Lymphocytes (%) (Auto) 28.9 10.0-50.0 % Monocytes (%) (Auto) 5.9 0.0-12.0 % Eosinophils (%) (Auto) 1.1 0.0-7.0 % Basophils (%) (Auto) 0.4 0.0-2.0 % Neutrophils # (Auto) 4.3 1.6-8.6 10 ^3/uL Lymphocytes # (Auto) 1.9 0.4-5.4 10 ^3/uL Monocytes # (Auto) 0.4 0-1.3 10 ^3/uL Eosinophils # (Auto) 0.1 0-0.8 10 ^3/uL Basophils # (Auto) 0 0-0.2 10 ^3/uL Nucleated Red Blood Cells 0.0 % Sodium Level 143 136-145 mmol/L Potassium Level 3.7 3.5-5.1 mmol/L Chloride Level 108 H 98-107 mmol/L Carbon Dioxide Level 26 20-31 mmol/L Anion Gap 9 5-15 Blood Urea Nitrogen 15 9-23 mg/dL Creatinine 1.19 0.700-1.30 mg/dL Glomerular Filtration Rate Calc 68 >90 mL/min BUN/Creatinine Ratio 12.6 10.0-20.0 Serum Glucose 112 H 74-106 mg/dL Calcium Level 8.6 L 8.7-10.4 mg/dL Total Bilirubin 0.5 0.2-1.0 mg/dL Aspartate Amino Transferase (AST) 27 13-40 U/L Alanine Aminotransferase (ALT) 42 H 7-40 U/L Alkaline Phosphatase 107 46-116 U/L Total Protein 6.8 5.7-8.2 g/dL Albumin 4.3 3.2-4.8 g/dL Current Medications Medications (Trade) Dose Ordered Sig/Nadira Route Start Time Stop Time Status Last Admin Ketorolac Tromethamine (Toradol Injection) 60 mg ONCE ONCE IM 04/25/25 07:45 04/25/25 07:46 DC 04/25/25 07:59 CLINICAL INFORMATION: Left flank pain. History of kidney stone. TECHNIQUE: Axial CT images of the abdomen and pelvis were obtained without IV contrast. Coronal and sagittal reformatted images were obtained, reviewed, and stored. Evaluation of the parenchymal organs is limited without IV contrast. Evaluation of the bowel and mesentery is limited without oral contrast. All CT scans at this medical facility are performed using dose modulation techniques as appropriate to a performed exam including the following: Automated exposure control was utilized; adjustment of the MA and/or KV according to patient size; and use of iterative reconstruction technique. CTDIvol = 12.49 mGy DLP = 647.45 mGy-cm COMPARISON: CT CT AB PEL WITH IV CON ONLY on DOS: 12/08/24, CT ABD PELVIS WO CONTRAST on DOS: 01/29/22 FINDINGS: Lung bases: Atelectasis in the lung bases. Liver: Grossly unremarkable in its noncontrast enhanced appearance. No abnormal density or focal lesion identified. Biliary: No calcified gallstones or biliary ductal dilatation. Spleen: Unremarkable. Pancreas: Grossly unremarkable in its noncontrast enhanced appearance. Adrenal glands: Unremarkable. No mass. Kidneys: Moderate left hydronephrosis with 4.5 mm obstructing calculus in the proximal left ureter. Aorta/Vascular: Scattered mild atherosclerotic calcification. No abdominal aortic aneurysm. Lymph nodes: No mass or lymphadenopathy. Bowel/mesentery: No small bowel obstruction. No free air or free fluid. Appendix is visualized and appears unremarkable. Scattered colonic diverticula without adjacent inflammatory changes to suggest diverticulitis. Pelvic organs: Enlarged prostate with impression on the bladder base. Bladder: Unremarkable. No mass. Abdominal wall: Small bilateral fat containing inguinal hernias. Bones: No acute fracture or suspicious intraosseous lesion. Postsurgical changes of posterior spinal fusion and interbody fusion at L3-L5. Surgical hardware appears intact. IMPRESSION: 1. Moderate left hydronephrosis and hydroureter with obstructing 4.5 mm calculus in the proximal left ureter. No other renal or ureteral calculi visualized. 2. Scattered colonic diverticula without adjacent inflammatory changes to suggest diverticulitis. 3. Small bilateral fat containing inguinal hernias. 4. Enlarged prostate. 5. Additional nonacute findings as detailed above. ATED BY: SANTIAGO ZAPATA DO DICTATED DATE/TIME: 04/25/25809 SIGNED BY: SANTIAGO ZAPATA DO SIGNED DATE/TIME: 04/25/25809 CC: X-Ray, Labs, Meds, VS Comment EXTERNAL MEDICAL RECORDS REVIEWED: [NONE] INDEPENDENT HISTORIANS: [NONE] SOCIAL DETERMINANTS OF HEALTH: [NONE] LABS ORDERED: CBC, BMP, UA REVIEWED AND INTERPRETED RESULTS: NORMAL IMAGING ORDERED: CT ABD/PEL TREATMENTS ORDERED: TORADOL 60 MG IM PROCEDURES PERFORMED: NONE CRITICAL CARE TIME: NONE I HAVE DISCUSSED THE PATIENT WITH THE ATTENDING PHYSICIAN DR. ARREDONDO AND HE AGREES WITH THE PATIENT'S PLAN OF CARE. PATIENT WAS INFORMED THAT SINCE HIS CT SCAN REVEALS AN OBSTRUCTING 4.5 MM LEFT RENAL STONE WITH MODERATE HYDRONEPHROSIS THAT HE WOULD NEED TO BE ADMITTED FOR FURTHER EVALUATION BY UROLOGIST. PATIENT STATED THAT HE DID NOT WANT TO BE ADMITTED AND WOULD LIKE TO SIGN OUT AMA AND FOLLOW UP WITH HIS UROLOGIST HIMSELF. PATIENT WAS INFORMED OF THE RISKS AND CONSEQUENCES ASSOCIATED WITH SIGNING OUT AMA AND HE STILL INSISTED ON LEAVING. PATIENT SIGNED OUT AMA. Images Reviewed?: Images reviewed and evaluated by me Time of 1ST Reevaluation: 08:45 Reevaluation 1ST: Improved Patient Education/Counseling: Diagnosis, Treatment Family Education/Counseling: Diagnosis, Treatment SEPSIS Sepsis Screen Date sepsis recognized/suspect: Apr 25, 2025 Time Sepsis recognized/suspect: 0636 Recent Procedure: No On Antibiotic Therapy: No Respiratory Rate >20: No Heart Rate >90: No Temp<36 C (96.8 F) or >38.3 C: No SBP <90 or MAP <65 mmHG: No New Acute Mental Status Change: No Is the patient on CPAP, BIPAP,: No Physician Orders Ct Ab Pel Wo Con-No Oral Or Iv (04/25/25 07:34) Heplock Iv (04/25/25 ) Sodium Chloride 0.9% (04/25/25 08:30) Vital Signs Date Time Temp Pulse Resp B/P (MAP) Pulse Ox O2 Delivery O2 Flow Rate FiO2 04/25/25 06:36 98.0 62 18 139/88 97 98.0 Laboratory Tests Test 04/25/25 07:14 White Blood Count 6.7 10^3/uL (4.4-10.8) Medications Medications Dose Ordered Sig/Nadira Route Start Time Stop Time Status Last Admin Dose Admin Ketorolac Tromethamine 60 mg ONCE ONCE IM 04/25/25 07:45 04/25/25 07:46 DC 04/25/25 07:59 Departure 1 Departure Time of Disposition: 08:45 Impression: Primary Impression: Hydronephrosis with renal calculous obstruction Additional Impression: Left renal stone Disposition: LEFT AGAINST MEDICAL ADVICE Condition: Fair Critical Care Note Critical Care Time?: No Stability Stability form required: No I personally scribed for TUYET MCCAULEY ([email or web address]) on 04/25/25 at 07:46. Electronically submitted by Rj Cuadra ([employer]). I personally scribed for TUYET MCCAULEY ([email or web address]) on 04/25/25 at 08:31. Electronically submitted by Rj Cuadra ([employer]). I personally scribed for TUYET MCCAULEY ([email or web address]) on 04/25/25 at 08:40. Electronically submitted by Rj Cuadra ([employer]). TUYET MCCAULEY Apr 25, 2025 07:46
[2025-04-25 07:55] LABS: Albumin 4.3 g/dL (3.2-4.8); BUN/Creatinine Ratio 12.6 (10.0-20.0); Blood Urea Nitrogen 15 mg/dL (9-23); Carbon Dioxide 26 mmol/L (20-31); Total Protein 6.8 g/dL (5.7-8.2)
[2025-04-25 07:56] LABS: Bilirubin, Total 0.5 mg/dL (0.2-1.0)
[2025-04-25 07:57] LABS: Alanine Aminotransferase 42 U/L (7-40); Anion Gap 9 (5-15); Calcium 8.6 mg/dL (8.7-10.4); Chloride 108 mmol/L (98-107); Glucose 112 mg/dL (74-106); Potassium 3.7 mmol/L (3.5-5.1); Sodium 143 mmol/L (136-145)
[2025-04-25] MEDS: KETOROLAC TROMETH 60MG/2ML VIAL IM ONE (07:59)
[2025-04-25 08:11] LABS: Alkaline Phosphatase 107 U/L (46-116)
--- NOTE | 2025-04-25 08:13 | DVH ---
CLINICAL INFORMATION: Left flank pain. History of kidney stone. TECHNIQUE: Axial CT images of the abdomen and pelvis were obtained without IV contrast. Coronal and s agittal reformatted images were obtained, reviewed, and stored. Evaluation of the parenchymal organs is limited without IV contrast. Evaluation of the bowel and mesentery is limited without oral contras t. All CT scans at this medical facility are performed using dose modulation techniques as appropriat e to a performed exam including the following: Automated exposure control was utilized; adjustment of the MA and/or KV according to patient size; and use of iterative reconstruction technique. CTDIvol = 12.49 mGy DLP = 647.45 mGy-cm COMPARISON: CT CT AB PEL WITH IV CON ONLY on DOS: 12/08/24, CT ABD PELVIS WO CONTRAST on DOS: 01/29/22 FINDINGS: Lung bases: Atelectasis in the lung bases. Liver: Grossly unremarkable in its noncontrast enhanced appearance. No abnormal density or focal lesi on identified. Biliary: No calcified gallstones or biliary ductal dilatation. Spleen: Unremarkable. Pancreas: Grossly unremarkable in its noncontrast enhanced appearance. Adrenal glands: Unremarkable. No mass. Kidneys: Moderate left hydronephrosis with 4.5 mm obstructing calculus in the proximal left ureter. Aorta/Vascular: Scattered mild atherosclerotic calcification. No abdominal aortic aneurysm. Lymph nodes: No mass or lymphadenopathy. Bowel/mesentery: No small bowel obstruction. No free air or free fluid. Appendix is visualized and ap pears unremarkable. Scattered colonic diverticula without adjacent inflammatory changes to suggest d iverticulitis. Pelvic organs: Enlarged prostate with impression on the bladder base. Bladder: Unremarkable. No mass. Abdominal wall: Small bilateral fat containing inguinal hernias. Bones: No acute fracture or suspicious intraosseous lesion. Postsurgical changes of posterior spinal fusion and interbody fusion at L3-L5. Surgical hardware appears intact. IMPRESSION: 1. Moderate left hydronephrosis and hydroureter with obstructing 4.5 mm calculus in the proximal left ureter. No other renal or ureteral calculi visualized. 2. Scattered colonic diverticula without adjacent inflammatory changes to suggest diverticulitis. 3. Small bilateral fat containing inguinal hernias. 4. Enlarged prostate. 5. Additional nonacute findings as detailed above.
[2025-04-25 08:15] LABS: Urine Protein, UAD Negative (Negative)
[2025-04-25] MEDS: SODIUM CHLORIDE 0.9% 1,000 ML IV ONE (08:40)
[2025-04-25] MEDS: ONDANSETRON HCL 4 MG/2 ML VIAL IV ONE (08:40)
== END 2025-04-25 08:37 | disposition left against medical advice (07) ==
LOC: ER 06:36
DX: N13.2 Hydronephrosis with renal and ureteral calculous obstruction (principal)
CPT/HCPCS: 36415; 74176; 80053; 81001; 85025; 96372; 99285; J1885

== ENCOUNTER 2025-04-25 23:24 | Inpatient (IN) | payer OTHER, MEDICAID ==
[~2025-04-25] VITALS: Ht 167.6 cm; Wt 87.6 kg
--- NOTE | 2025-04-25 23:44 | ED.PDOC ---
General HPI Comments 64-year-old male who came to ER for flank pains. Patient knows seen here earlier today for left flank pain radiating to the left back side. CT scan revealed 1. Moderate left hydronephrosis and hydroureter with obstructing 4.5 mm calculus in the proximal left ureter. No other renal or ureteral calculi v isualized., 2. Scattered colonic diverticula without adjacent inflammatory changes to suggest diverticulitis., 3. Small bilateral fat containing inguinal hernias.4. Enlarged prostate. Denies any urinary symptoms such as dysuria hematuria, denies any nausea or vomiting or fever. Patient was advised admission admits patient has signed AMA after receiving relief with Toradol shot. At around 9:00 p.m., patient has started to the experiencing left flank pain again, progressively worsening, now with hematuria REVIEW OF SYSTEMS: General: No fever, no chills, or fatigue HEENT: No sore throat, no earache, no congestion, no neck pain. Cardiac: No chest pain. No palpitations. Lungs: No shortness of breath, no cough. GI: No nausea, no vomiting, no diarrhea, no constipation, no abdominal pain : No dysuria, frequency, or urgency. (+) hematuria. (+) flank pain left Musculoskeletal: No joint pain , no joint swelling, no extremity edema. Skin: No rash, no itching. Neuro: No headache, no dizziness, no weakness PHYSICAL EXAM: General: Awake, alert and oriented. No acute distress. Skin: Skin in warm, dry and intact without rashes or lesions. HEENT: The head is normocephalic and atraumatic. Conjunctivae are clear without exudates or hemorrhage. Sclera is non-icteric. Neck: Normal range of motion. No JVD. Cardiac: Regular rate Respiratory: No signs of respiratory distress. No Stridor. Abdomen: Positive left flank tenderness Extremities: Upper and lower extremities are atraumatic in appearance without deformity. Neurological: The patient is awake, alert and oriented to person, place, and time with normal speech. Speech is clear. There is no facial asymmetry. Psychiatric: Appropriate mood and affect. Good judgement and insight. Chief Complaint: Flank Pain Time Seen by MD: 23:43 Primary Care Provider: JOSE Reviewed notes: Nurses Notes Allergies: Coded Allergies: NO KNOWN ALLERGIES (Unverified , 01/22/21) Home Meds Active Scripts Benzonatate (Benzonatate) 200 Mg Cap, 1 CAP PO TID, #30 CAP Prov:GANGA WRIGHT MD 06/26/24 Hydrocodone-Acetaminophen (Hydrocodone Bitartrate/AC 5-325 mg) 1 Tab Tab, 1 TAB PO TID PRN, #30 TAB Prov:JORI ORTIZ MD 07/14/23 Metronidazole (Flagyl) 500 Mg Tab, 1 TAB PO TID, #30 TAB Prov:JORI ORTIZ MD 07/14/23 Levofloxacin Hemihydrate (LEVAQUIN 500 MG) 500 Mg Tab, 1 TAB PO DAILY, #10 TAB Prov:JORI ORTIZ MD 07/14/23 Reported Medications Loratadine (Claritin) 5 Mg/5 Ml Syp, 5 ML PO DAILY, #150 ML 2 Refills 07/10/23 Hydrocodone-Acetaminophen (Hydrocodone Bitartrate/AC 5-325 mg) 1 Tab Tab, 1 TAB PO, TAB 07/10/23 Tamsulosin Hcl (Tamsulosin Hcl) 0.4 Mg Cap, 1 CAP PO DAILY 07/10/23 Pantoprazole Sodium Sesquihydr (Pantoprazole Sodium) 40 Mg Tab, 1 TAB PO DAILY 07/10/23 Information Source: Patient Mode of Arrival: Ambulatory Past Medical History PAST MEDICAL HISTORY: Kidney Stones Past Medical History (Other): Prostate problems Surgical History: Hernia Repair Family History Family History: Reviewed,noncontributory to illness Social History Smoker: Non-Smoker Alcohol: Denies ETOH Use Drugs: Denies Drug Use Lives In: Home Was a procedure done? Was a procedure done?: No Differential Diagnosis Kidney stone (Female): N/A Kidney stone (Male): Pyelonephritis, Strain, Urinary obstruction, Urolithiasis, Renal infarction, Urinary tract infection Urinary Problem (Male): Urethritis, Urinary Retention, Urolithiasis, UTI X-Ray, Labs, Meds, VS Vital Signs Date Time Temp Pulse Resp B/P (MAP) Pulse Ox O2 Delivery O2 Flow Rate FiO2 04/25/25 23:26 97.5 66 18 135/93 97 97.5 Lab Test 04/25/25 23:39 04/25/25 23:33 Range/Units Prothrombin Time 10.6 9.3-11.8 sec Prothrombin Time INR 1.00 0.9-1.15 Activated Partial Thromboplast Time 27.5 24.5-34.5 SEC Magnesium Level 2.1 1.6-2.6 mg/dL Total Bilirubin 0.5 0.2-1.0 mg/dL Direct Bilirubin 0.2 <0.3 mg/dL Aspartate Amino Transferase (AST) 28 13-40 U/L Alanine Aminotransferase (ALT) 44 H 7-40 U/L Alkaline Phosphatase 107 46-116 U/L Total Protein 6.7 5.7-8.2 g/dL Albumin 4.4 3.2-4.8 g/dL White Blood Count 9.6 # 4.4-10.8 10^3/uL Red Blood Count 4.69 4.5-5.90 10^6/uL Hemoglobin 14.2 13.5-17.5 g/dL Hematocrit 42.0 41.0-53.0 % Mean Corpuscular Volume 89.7 80.0-100.0 fL Mean Corpuscular Hemoglobin 30.3 28.0-32.0 pg Mean Corpuscular Hemoglobin Concent 33.8 32.0-36.0 g/dL Red Cell Distribution Width 13.8 11.8-14.3 % Platelet Count 202 140-450 10^3/uL Mean Platelet Volume 8.7 6.9-10.8 fL Neutrophils (%) (Auto) 60.7 37.0-80.0 % Lymphocytes (%) (Auto) 31.1 10.0-50.0 % Monocytes (%) (Auto) 5.9 0.0-12.0 % Eosinophils (%) (Auto) 1.6 0.0-7.0 % Basophils (%) (Auto) 0.7 0.0-2.0 % Neutrophils # (Auto) 5.8 1.6-8.6 10 ^3/uL Lymphocytes # (Auto) 3.0 0.4-5.4 10 ^3/uL Monocytes # (Auto) 0.6 0-1.3 10 ^3/uL Eosinophils # (Auto) 0.2 0-0.8 10 ^3/uL Basophils # (Auto) 0.1 0-0.2 10 ^3/uL Nucleated Red Blood Cells 0.1 % Sodium Level 141 136-145 mmol/L Potassium Level 3.5 3.5-5.1 mmol/L Chloride Level 106 98-107 mmol/L Carbon Dioxide Level 25 20-31 mmol/L Anion Gap 10 5-15 Blood Urea Nitrogen 13 9-23 mg/dL Creatinine 1.12 0.700-1.30 mg/dL Glomerular Filtration Rate Calc 73 >90 mL/min BUN/Creatinine Ratio 11.6 10.0-20.0 Serum Glucose 94 74-106 mg/dL Calcium Level 8.8 8.7-10.4 mg/dL Current Medications Medications (Trade) Dose Ordered Sig/Nadira Route Start Time Stop Time Status Last Admin Sodium Chloride 500 ml @ 500 mls/hr Q1H ONCE IV 04/25/25 23:45 04/26/25 00:44 DC 04/26/25 02:05 Hydromorphone HCl (Dilaudid Injection) 0.5 mg ONCE ONCE IV 04/25/25 23:45 04/25/25 23:46 DC 04/26/25 01:47 Time of 1ST Reevaluation: 04:18 Reevaluation 1ST: Improved Patient Education/Counseling: Other (Need for admission) Family Education/Counseling: Other (Need for admission) SEPSIS Sepsis Screen Date sepsis recognized/suspect: Apr 25, 2025 Time Sepsis recognized/suspect: 2329 Recent Procedure: No On Antibiotic Therapy: No Respiratory Rate >20: No Heart Rate >90: No Temp<36 C (96.8 F) or >38.3 C: No SBP <90 or MAP <65 mmHG: No New Acute Mental Status Change: No Is the patient on CPAP, BIPAP,: No Physician Orders Urinalysis (04/25/25 23:32) Vital Signs Date Time Temp Pulse Resp B/P (MAP) Pulse Ox O2 Delivery O2 Flow Rate FiO2 04/25/25 23:26 97.5 66 18 135/93 97 97.5 Laboratory Tests Test 04/25/25 23:33 White Blood Count 9.6 10^3/uL (4.4-10.8) # Medications Medications Dose Ordered Sig/Nadira Route Start Time Stop Time Status Last Admin Dose Admin Hydromorphone HCl 0.5 mg ONCE ONCE IV 04/25/25 23:45 04/25/25 23:46 DC 04/26/25 01:47 Sodium Chloride 500 ml @ 500 mls/hr Q1H ONCE IV 04/25/25 23:45 04/26/25 00:44 DC 04/26/25 02:05 Departure 1 Departure Time of Disposition: 04:16 Impression: Primary Impression: Kidney stone Disposition: ADMITTED INPATIENT Condition: Stable Comments MDM: 64-year-old male with uncontrolled pain from obstructive kidney stone. Extensive evaluation was performed in attempt to identify or rule out: (See differential diagnosis section) The following tests were ordered, and results were reviewed by me and discussed with patient: (See diagnostic results section) I reviewed the following notes from the pt's past medical encounters: Encounter 04/25/2024 for left flank pain Decision regarding hospitalization or escalation of hospital level of care: Risk and benefits of admission for further treatment of patient's condition was considered. Due to patient's current clinical condition, high risk of decline and poor outcome if discharged and need for further inpatient management and monitoring, patient will be admitted to the hospital. Parenteral controlled substances: IV Dilaudid Critical Care Note Critical Care Time?: No Stability Stability form required: No Heart Score Heart Score: Heart Score Response (Comments) Value History N/A 0 EKG N/A 0 Age N/A 0 Risk Factors N/A 0 Troponin N/A 0 Total 0 I personally scribed for AGNES SUAZO MD ([email or web address]) on 04/25/25 at 23:44. Electronically submitted by Juan Luis Walker ([facility] AGNES SUAZO MD Apr 25, 2025 23:44
[2025-04-25 23:51] LABS: Hematocrit 42.0 % (41.0-53.0); Hemoglobin 14.2 g/dL (13.5-17.5); Mean Corpuscular Hemoglobin 30.3 pg (28.0-32.0); Mean Corpuscular Volume 89.7 fL (80.0-100.0); Nucleated Red Blood Cells % 0.1 %
[2025-04-25 23:58] LABS: Chloride 106 mmol/L (98-107); Sodium 141 mmol/L (136-145)
[2025-04-25 23:59] LABS: Anion Gap 10 (5-15); Calcium 8.8 mg/dL (8.7-10.4); Carbon Dioxide 25 mmol/L (20-31)
[2025-04-26 00:04] LABS: BUN/Creatinine Ratio 11.6 (10.0-20.0); Blood Urea Nitrogen 13 mg/dL (9-23); Glucose 94 mg/dL (74-106)
[2025-04-26 00:09] LABS: Potassium 3.5 mmol/L (3.5-5.1)
[2025-04-26] MEDS ORDERED: ONDANSETRON HCL 4 MG/2 ML VIAL IV PRN (00:45)
--- NOTE | 2025-04-26 01:03 | DVHHPRES ---
History of Present Illness Resident Creating Document: FREDY HARMON RESIDENT History of Present Illness This is a 64-year-old male with a past medical history of BPH, chronic lower back pain, history of laminectomy, right inguinal hernia repair, who has come in with the chief complaints of left flank pain since today morning( 04/25/2025). Patient reports that he woke up at 3:00 a.m. due to left flank pain and the pain increased in intensity to 10 /10 around 5:00 a.m., was acute in nature, burning type, radiating to his left groin and associated with burning micturition, increased frequency and dysuria which prompted him to visit the emergency department. Patient reports that since he has been in the hospital he also noticed bright red blood in his urine today. He denies any nausea, vomiting, fever, chills, abdominal pain elsewhere, recent injury. On admission vitals were normal, CT of the abdomen and pelvis showed left moderate hydronephrosis, hydroureter, ureteral calculi of 4.5 mm in the proximal left ureter. We are admitting the patient for further workup and management. Past medical history: BPH, chronic lower back pain past surgical history: Right inguinal hernia repair in 2023, history of laminectomy family history: Reviewed and noncontributory to the management of this case Home medicines: Flomax, [place] 5 Social history: Patient denies ever smoking or taking any illicit drugs. He does not drink alcohol now but used to occasionally drink when he was younger Allergies: None PCP: Dr. Luciano code status: full code Review of Systems Eyes: No: Pain, Vision change, Conjunctivae inflammation, Eyelid inflammation, Other, Redness ENT: No: Ear pain, Ear discharge, Nose pain, Nose discharge, Nose congestion, Mouth pain, Mouth swelling, Throat pain, Throat swelling, Other Respiratory: No: Cough, Dry, Shortness of breath, SOB with excertion, Wheezing, Hemoptysis, Pleuritic Pain, Sputum, Wheezing, Other Cardiovascular: No: Chest Pain, Palpitations, Orthopnea, Paroxysmal Noc. Dyspne a, Edema, Lt Headedness, Other Gastrointestinal: Abdominal Pain; No: Nausea, Vomiting, Diarrhea, Constipation, Melena, Hematochezia, Other Genitourinary: Dysuria, Frequency, Hematuria, Other (left flank pain) Musculoskeletal: back pain; No: other, neck pain, shoulder pain, arm pain, hand pain, leg pain, foot pain Skin: No: Rash, Lesions, Jaundice, Bruising, Other Neurological: No: Weakness, Numbness, Incoordination, Change in speech, Confusion, Seizures, Other Allergies: Coded Allergies: NO KNOWN ALLERGIES (Unverified , 01/22/21) Medications Current Medications Medications Dose Ordered Sig/Nadira Route Start Time Stop Time Status Last Admin Dose Admin Acetaminophen/ Hydrocodone Bitart 1 tab Q4HP PRN PO 04/26/25 00:45 Ondansetron HCl 4 mg Q4HP PRN IV 04/26/25 00:45 Acetaminophen 650 mg Q6HP PRN PO 04/26/25 00:45 Enoxaparin Sodium 40 mg DAILY SC 04/27/25 10:00 Ceftriaxone Sodium 50 ml @ 100 mls/hr DAILY@09 IV 04/27/25 09:00 Tamsulosin HCl 0.4 mg QPM PO 04/26/25 18:00 Exam Vital Signs Vital Signs Date Time Temp Pulse Resp B/P (MAP) Pulse Ox O2 Delivery O2 Flow Rate FiO2 04/25/25 23:26 97.5 66 18 135/93 97 97.5 Exam General Appearance: Alert, Oriented X3, Cooperative, Not in acute distress HEENT: Atraumatic, Mucous membranes moist/pink Respiratory: Clear to auscultation, Normal air movement, No added sounds Cardiovascular: Regular rate, Normal S1, Normal S2, No murmurs Abdominal: Active bowel sounds, Soft, no distention, costovertebral angle tenderness present, tenderness on palpation of suprapubic region, left lower quadrant Extremities: No edema, Normal pulses, No tenderness/swelling Skin: No Significant rash, except past surgical scars Neuro: Normal speech, sensorimotor deficits none Psych/Mental Status: Mental status NL, Mood NL Labs/Xrays Labs Test 04/25/25 23:39 04/25/25 23:33 Range/Units White Blood Count 9.6 # 4.4-10.8 10^3/uL Red Blood Count 4.69 4.5-5.90 10^6/uL Hemoglobin 14.2 13.5-17.5 g/dL Hematocrit 42.0 41.0-53.0 % Mean Corpuscular Volume 89.7 80.0-100.0 fL Mean Corpuscular Hemoglobin 30.3 28.0-32.0 pg Mean Corpuscular Hemoglobin Concent 33.8 32.0-36.0 g/dL Red Cell Distribution Width 13.8 11.8-14.3 % Platelet Count 202 140-450 10^3/uL Mean Platelet Volume 8.7 6.9-10.8 fL Neutrophils (%) (Auto) 60.7 37.0-80.0 % Lymphocytes (%) (Auto) 31.1 10.0-50.0 % Monocytes (%) (Auto) 5.9 0.0-12.0 % Eosinophils (%) (Auto) 1.6 0.0-7.0 % Basophils (%) (Auto) 0.7 0.0-2.0 % Neutrophils # (Auto) 5.8 1.6-8.6 10 ^3/uL Lymphocytes # (Auto) 3.0 0.4-5.4 10 ^3/uL Monocytes # (Auto) 0.6 0-1.3 10 ^3/uL Eosinophils # (Auto) 0.2 0-0.8 10 ^3/uL Basophils # (Auto) 0.1 0-0.2 10 ^3/uL Nucleated Red Blood Cells 0.1 % Sodium Level 141 136-145 mmol/L Potassium Level 3.5 3.5-5.1 mmol/L Chloride Level 106 98-107 mmol/L Carbon Dioxide Level 25 20-31 mmol/L Anion Gap 10 5-15 Blood Urea Nitrogen 13 9-23 mg/dL Creatinine 1.12 0.700-1.30 mg/dL Glomerular Filtration Rate Calc 73 >90 mL/min BUN/Creatinine Ratio 11.6 10.0-20.0 Serum Glucose 94 74-106 mg/dL Calcium Level 8.8 8.7-10.4 mg/dL SEPSIS Sepsis Screen Date sepsis recognized/suspect: Apr 25, 2025 Time Sepsis recognized/suspect: 2329 Recent Procedure: No On Antibiotic Therapy: No Respiratory Rate >20: No Heart Rate >90: No Temp<36 C (96.8 F) or >38.3 C: No SBP <90 or MAP <65 mmHG: No New Acute Mental Status Change: No Is the patient on CPAP, BIPAP,: No Physician Orders Urinalysis (04/25/25 23:32) Admit (04/26/25 00:35) Code Status (04/26/25 00:35) Hydrocodone-Acet 5/325mg Tab ([place] 5/32 (04/26/25 00:45) Ondansetron Hcl (Zofran) (04/26/25 00:45) Complete Blood Count (04/27/25 04:00) Comprehensive Metabolic Panel (04/27/25 04:00) Condition: Unstable (04/26/25 00:35) Acetaminophen Tablet (Tylenol Tablet) (04/26/25 00:45) Stat Ekg For Chest Pain (04/26/25 00:35) Notify Of Changes From Base (04/26/25 00:35) Regular Diet (04/26/25 Breakfast) Drug Screen (04/26/25 00:35) Urine Bacterial Culture (04/26/25 00:35) * Urology Consult (04/26/25 00:35) Magnesium (04/26/25 00:35) Hepatic Panel (04/26/25 00:35) Sodium Chloride 0.9% (04/26/25 00:45) Ceftriaxone 1gm/50ml (Rocephin) (04/26/25 00:45) Sodium Chloride 0.9% (04/26/25 00:45) Tamsulosin Hydrochloride (Flomax) (04/26/25 18:00) Kub Abdomen Single View (04/27/25 06:00) Ceftriaxone 1gm/50ml (Rocephin) (04/27/25 09:00) Enoxaparin Sodium (Lovenox) (04/26/25 01:00) Enoxaparin Sodium (Lovenox) (04/27/25 10:00) Vital Signs Date Time Temp Pulse Resp B/P (MAP) Pulse Ox O2 Delivery O2 Flow Rate FiO2 04/25/25 23:26 97.5 66 18 135/93 97 97.5 Laboratory Tests Test 04/25/25 23:33 White Blood Count 9.6 10^3/uL (4.4-10.8) # Assessment/Plan Assessment/Plan #Left ureteral calculus #Moderate left hydronephrosis and hydroureter -CT abdomen and pelvis with contrast shows: Moderate left hydronephrosis and hydroureter with obstructing 4.5 mm calculus in the proximal left ureter - urine analysis normal - urine culture - pain management: acetaminophen 650 mg q.6 p.o. prn for mild pain [place] 5/325 mg q.4 PRN for mod pain Dilaudid 0.5 mg IV q.4 PRN for severe pain -ceftriaxone 1g iv daily - IV fluids normal saline - urology consult - PT/PTT - Zofran 4 mg IV q.4 PRN - KUB, pending #Diverticulosis without diverticulitis -seen in abdomen and pelvic CT-Scattered colonic diverticula without adjacent inflammatory changes to suggest diverticulitis. -outpatient follow up #Small bilateral fat containing inguinal hernias. -seen in abdomen and pelvis CT -outpatient follow up #BPH -seen in abdomen and pelvis CT -continue tamsulosin 0.4 mg p.o. daily -outpatient follow up #Hypokalemia -repleted # obesity,BMI 30.4 - I have counseled the patient regarding need of weight loss, healthier lifestyle, dietary changes for over 8 minutes DVT prophylaxis: Lovenox 40 mg subcutaneous daily Diet: regular diet Goals of care discussed with the patient for more than 27 minutes: Full code status Case discussed with Dr. Burciaga, and patient Plan discussed with: Patient My Orders Orders - FREDY HARMON RESIDENT Procedure Category Date Status Time Admit ADMIT 04/26/25 Transmitted 00:35 Code Status CODE 04/26/25 Transmitted 00:35 Hydrocodone-Acet PHA 04/26/25 In Process 5/325mg Tab ([place] 00:45 Ondansetron Hcl PHA 04/26/25 In Process (Zofran) 00:45 Complete Blood Count LAB 04/27/25 Verified 04:00 Comprehensive LAB 04/27/25 Verified Metabolic Panel 04:00 Condition: Unstable SUMA 04/26/25 In Process 00:35 Acetaminophen Tablet PHA 04/26/25 In Process (Tylenol Tablet) 00:45 Stat Ekg For Chest SUMA 04/26/25 In Process Pain 00:35 Notify Of Changes SUMA 04/26/25 In Process From Base 00:35 Regular Diet DIET 04/26/25 Transmitted Breakfast Drug Screen LAB 04/26/25 Logged 00:35 Urine Bacterial SVETLANA 04/26/25 Logged Culture 00:35 * Urology Consult CONS 04/26/25 Transmitted 00:35 Magnesium LAB 04/26/25 In Process 00:35 Hepatic Panel LAB 04/26/25 In Process 00:35 Sodium Chloride 0.9% PHA 04/26/25 In Process 00:45 Ceftriaxone 1gm/50ml PHA 04/26/25 In Process (Rocephin) 00:45 Sodium Chloride 0.9% PHA 04/26/25 In Process 00:45 Tamsulosin PHA 04/26/25 In Process Hydrochloride (Flomax) 18:00 Kub Abdomen Single XY 04/27/25 Logged View 06:00 Ceftriaxone 1gm/50ml PHA 04/27/25 In Process (Rocephin) 09:00 Enoxaparin Sodium PHA 04/26/25 In Process (Lovenox) 01:00 Enoxaparin Sodium PHA 04/27/25 In Process (Lovenox) 10:00 Date of Service: Apr 26, 2025 Billing Provider: RICARDO BURCIAGA MD Common Visit Codes: [id number] INP/OBS CARE (HIGH) Secondary Visit Codes: [id number] CARE PLAN 30 MINUTES FREDY HARMON RESIDENT Apr 26, 2025 01:02 RICARDO BURCIAGA MD Apr 30, 2025 12:02
[2025-04-26 01:26] LABS: Albumin 4.4 g/dL (3.2-4.8); Alkaline Phosphatase 107.0 U/L (46-116); Bilirubin, Direct 0.2 mg/dL (<0.3); Bilirubin, Total 0.5 mg/dL (0.2-1.0); Magnesium 2.1 mg/dL (1.6-2.6); Total Protein 6.7 g/dL (5.7-8.2)
[2025-04-26 01:28] LABS: Alanine Aminotransferase 44.0 U/L (7-40)
[2025-04-26] MEDS: HYDROmorphone HCL 2 MG/ML VL/or syr IV ONE (01:47)
[2025-04-26] MEDS: TAMSULOSIN HYDROCHLORIDE 0.4 MG CAP PO ONE (01:49)
[2025-04-26] MEDS: SODIUM CHLORIDE 0.9% 500 ML IV ONE ×2 (02:05→02:31)
[2025-04-26 02:13] LABS: INR 1.0 (0.9-1.15); Partial Thromboplastin Time 27.5 SEC (24.5-34.5); Prothrombin Time 10.6 sec (9.3-11.8)
[2025-04-26 04:01] VITALS: BP 102/70; PULSE 67; RESP 17; TEMP 97.7; O2SAT 95
[2025-04-26] MEDS: SODIUM CHLORIDE 0.9% 1,000 ML IV ONE (04:26)
[2025-04-26] MEDS: ENOXAPARIN SOD 40 MG/0.4 ML SYRINGE SC ONE (04:26)
[2025-04-26 04:47] LABS: Hematocrit 38.7 % (41.0-53.0); Hemoglobin 13.2 g/dL (13.5-17.5); Mean Corpuscular Hemoglobin 30.6 pg (28.0-32.0); Mean Corpuscular Volume 89.7 fL (80.0-100.0); Nucleated Red Blood Cells % 0.0 %
[2025-04-26 04:59] LABS: Albumin 3.8 g/dL (3.2-4.8); Alkaline Phosphatase 97 U/L (46-116); Anion Gap 10 (5-15); BUN/Creatinine Ratio 10.9 (10.0-20.0); Blood Urea Nitrogen 14 mg/dL (9-23); Carbon Dioxide 25 mmol/L (20-31); Glucose 96 mg/dL (74-106); Sodium 142 mmol/L (136-145); Total Protein 6.1 g/dL (5.7-8.2)
[2025-04-26 05:00] LABS: Bilirubin, Total 0.5 mg/dL (0.2-1.0)
[2025-04-26 05:05] LABS: Alanine Aminotransferase 51 U/L (7-40); Calcium 8.1 mg/dL (8.7-10.4); Chloride 107 mmol/L (98-107); Potassium 3.4 mmol/L (3.5-5.1)
[2025-04-26 05:13] LABS: Urine Protein, UAD Negative (Negative)
[2025-04-26 05:31] LABS: Amphetamine Screen, Urine Neg (NEGATIVE); Barbiturate Scree,Urine Neg (NEGATIVE); Benzodiazephine Screen, Urine Neg (NEGATIVE); Cannabinoid Screen, Urine Neg (NEGATIVE); Cocaine Screen, Urine Neg (NEGATIVE); Phencyclidine Screen, Urine Neg (NEGATIVE)
[2025-04-26 05:45] LABS: Opiate Scree,Urine Neg (NEGATIVE)
[2025-04-26] MEDS: POTASSIUM CHL 20 Meq TABLET PO ONE (06:39)
[2025-04-26] MEDS: HYDROcodone-ACET 5/325MG TAB PO PRN (08:29)
[2025-04-26 09:00] VITALS: BP 135/84; PULSE 62; RESP 18; TEMP 98.2; O2SAT 94
[2025-04-26 12:39] VITALS: BP 122/77; PULSE 60; RESP 18; TEMP 98; O2SAT 95
[2025-04-26 17:00] VITALS: BP 139/84; PULSE 65; RESP 18; TEMP 98.5; O2SAT 96
[2025-04-26] MEDS: TAMSULOSIN HYDROCHLORIDE 0.4 MG CAP PO SCH (18:31)
[2025-04-26] MEDS: ACETAMINOPHEN 325 MG TAB PO PRN (20:13)
[2025-04-26] MEDS: SODIUM CHLORIDE 0.9% 1,000 ML IV SCH (23:20)
[2025-04-27] VITALS (8 sets, daily range): BP systolic 123–148; BP diastolic 73–93; PULSE 62–89; RESP 17–20; TEMP 97.9–98.9; O2SAT 91–99
--- NOTE | 2025-04-27 06:07 | DVH ---
Indication: ureter stone left Technique: Single frontal view of the abdomen was obtained Comparison: CT CT AB PEL WO CON-NO ORAL OR IV on DOS: 04/25/25, CT CT AB PEL WITH IV CON ONLY on DOS: 12/08/24, CT ABD PELVIS WO CONTRAST on DOS: 01/29/22 IMPRESSION: Bowel-gas pattern is nonobstructed. No pathologic calcification. Previously noted left ureteral calc ification is not well appreciated, there is a potential radiopacity measuring 2 mm superimposing the left bladder shadow, however unclear if claims representative of previous ureteral calcification. Lumbar fus ion hardware.
[2025-04-27] MEDS: ENOXAPARIN SOD 40 MG/0.4 ML SYRINGE SC SCH (10:12)
[2025-04-27 10:16] LABS: Hematocrit 42.4 % (41.0-53.0); Hemoglobin 14.5 g/dL (13.5-17.5); Mean Corpuscular Hemoglobin 30.9 pg (28.0-32.0); Mean Corpuscular Volume 90.2 fL (80.0-100.0); Nucleated Red Blood Cells % 0.0 %
[2025-04-27 10:34] LABS: Albumin 4.1 g/dL (3.2-4.8); Alkaline Phosphatase 91 U/L (46-116); Anion Gap 10 (5-15); BUN/Creatinine Ratio 6.5 (10.0-20.0); Bilirubin, Total 1.1 mg/dL (0.2-1.0); Blood Urea Nitrogen 11 mg/dL (9-23); Carbon Dioxide 24 mmol/L (20-31); Potassium 3.9 mmol/L (3.5-5.1); Sodium 142 mmol/L (136-145); Total Protein 6.6 g/dL (5.7-8.2)
[2025-04-27 10:48] LABS: Alanine Aminotransferase 42 U/L (7-40); Calcium 8.6 mg/dL (8.7-10.4); Chloride 108 mmol/L (98-107); Glucose 169 mg/dL (74-106)
--- NOTE | 2025-04-27 12:33 | DVH ---
RENAL ULTRASOUND CLINICAL HISTORY: hydronephrosis, check for ureteral jets TECHNIQUE: Multiple grayscale ultrasound images were obtained through the kidneys and urinary bladder . COMPARISON: CT abdomen pelvis from 04/25/2025 FINDINGS: Right kidney: Measures 11.1 cm. No hydronephrosis. Left kidney: Measures 12.5 cm. Mild hydronephrosis. Urinary bladder: Unremarkable. Prevoid volume is 159.3 . Bilateral ureteral jets are visualized. IMPRESSION: 1. Mild Left hydronephrosis. 2. Bilateral ureteral jets are visualized.
[2025-04-27] MEDS: SODIUM CHLORIDE 0.9% 1,000 ML IV ONE (12:45)
[2025-04-27] MEDS: HYDROmorphone HCL 2 MG/ML VL/or syr IV PRN (13:28)
--- NOTE | 2025-04-27 16:06 | DVHPNRES ---
Progress Note Date Seen: Apr 27, 2025 Resident Creating Document: PRATIK CHAIREZ RESIDENT Medical Necessity Reason Pt with a Central, PICC or Fol: No Subjective Review of Systems Brief history on admission: This is a 64-year-old male with a past medical history of BPH, chronic lower back pain, history of laminectomy, right inguinal hernia repair, who has come in with the chief complaints of left flank pain since today morning( 04/25/2025). Patient reports that he woke up at 3:00 a.m. due to left flank pain and the pain increased in intensity to around 5:00 a.m., was acute in nature, burning type, radiating to his left groin and associated with burning micturition, increased frequency and dysuria which prompted him to visit the emergency department. Patient reports that since he has been in the hospital he also noticed bright red blood in his urine today. He denies any nausea, vomiting, fever, chills, abdominal pain elsewhere, recent injury. On admission vitals were normal, CT of the abdomen and pelvis showed left moderate hydronephrosis, hydroureter, ureteral calculi of 4.5 mm in the proximal left ureter. We are admitting the patient for further workup and management. Past medical history: BPH, chronic lower back pain, gastritis past surgical history: Right inguinal hernia repair in 2023, history of laminectomy Family history: Reviewed and noncontributory to the management of this case Home medicines: Flomax, [place] 5 Social history: Denies alcohol, smoking, recreational drug use. Full code, next to kin is . Allergies: None PCP: Dr. Luciano ROS: Constitutional: Denies weight loss, fever and chills. HEENT: Denies changes in vision and hearing. Respiratory: Denies shortness of breath and cough Cardiovascular: Denies chest discomfort or palpitations GI: Abdominal pain. Denies nausea, vomiting, diarrhea, constipation. : Increased frequency of urination, burning micturition, dysuria. Musculoskeletal: Denies myalgias and joint pain Skin: Denies rash and pruritus. Neurological: Denies dizziness, headache, vision or hearing problems 04/27/2025: Patient was examined at bedside today. Patient continues to complain of severe abdominal pain, continue pain management, IV fluids and strain urine for passing calculus. Objective vital signs Vital Sign Date Time Temp Pulse Resp B/P (MAP) Pulse Ox O2 Delivery O2 Flow Rate FiO2 04/27/25 13:28 71 18 144/88 04/27/25 13:00 98.1 98 98.1 04/26/25 04:01 Room Air* 0 21 medications Current Medications Medications Dose Ordered Sig/Nadira Route Start Time Stop Time Status Last Admin Dose Admin Ondansetron HCl 4 mg Q4HP PRN IV 04/26/25 00:45 Acetaminophen 650 mg Q6HP PRN PO 04/26/25 00:45 04/27/25 02:02 650 MG Enoxaparin Sodium 40 mg DAILY SC 04/27/25 10:00 04/27/25 10:12 40 MG Ceftriaxone Sodium 50 ml @ 100 mls/hr DAILY@09 IV 04/27/25 09:00 04/27/25 08:45 100 MLS/HR Tamsulosin HCl 0.4 mg QPM PO 04/26/25 18:00 04/26/25 18:31 0.4 MG Sodium Chloride 1,000 ml @ 75 mls/hr [id number] IV 04/26/25 12:30 04/26/25 23:20 75 MLS/HR Hydromorphone HCl 0.5 mg Q4HPRN PRN IV 04/27/25 12:45 04/27/25 13:28 0.5 MG Examination General: Patient alert and oriented in person, place and time. Patient following commands. HEENT: Normocephalic, atraumatic, moist mucous membranes Respiratory/pulmonary: Clear lungs bilaterally, vesicular murmurs present in almost all lung nguyen, no associated crackles or wheezes. Cardiovascular: Normal heart sounds S1 and S2 with no associated murmurs Abdomen: Tenderness in the left flank area and left lower abdomen on light palpation Extremities: There is no peripheral edema present at the lower extremities. Peripheral Pulses: 3+ Radial (R). 3+ Radial (L). 3+ Dorsalis pedis (R). 3+ Dorsalis pedis(L) Skin: No rashes or pruritus, there is no sacral edema present at this time. Neurological: Intact cranial nerves with no focal neurologic deficits laboratory and microbiology Laboratory Tests 04/27/25 09:52 Test 04/27/25 09:52 Range/Units Serum Glucose 169 H 74-106 mg/dL Microbiology Date/Time Source Procedure Growth Status 04/26/25 04:36 Voided Urine Urine Culture - Preliminary Resulted Problem List/Assessment/Plan Problem List/Assessment/Plan Obstructive Left ureteral calculus Moderate left hydronephrosis and hydroureter RENITA hemodynamically mediated (VMN) CT abdomen and pelvis with contrast shows: Moderate left hydronephrosis and hydroureter with obstructing 4.5 mm calculus in the proximal left ureter Urine analysis normal Supportive management with IV Dilaudid, Zofran, IV fluids IV ceftriaxone 1 g daily Urology consulted Preliminary urine culture shows no growth. Diverticulosis without diverticulitis Small fat containing bilateral inguinal hernias CT- Scattered colonic diverticula without adjacent inflammatory changes to suggest diverticulitis, fat containing inguinal hernias. Continue clinical monitoring and outpatient follow up BPH Continue tamsulosin 0.4 mg p.o. daily Continue outpatient follow-up Hypokalemia Supplemented, monitor BMP Obesity, BMI 30.4 Counseled on lifestyle modifications DIET: Regular DVT PROPHYLAXIS: Lovenox GI PROPHYLAXIS: Protonix CODE STATUS: Goals of care discussed with patient at bedside for more than 17 minutes. Full code DISPOSITION: Med/surge Patient's status and plan discussed with the patient. Case discussed with Dr. Pacheco Plan discussed with: Patient, Other (Nurses) My Orders My Orders Orders - PRATIK CHAIREZ Procedure Category Date Status Time Hydromorphone PHA 04/27/25 In Process Injection (Dilaudid 12:45 Strain All Urine For SUMA 04/27/25 In Process Stones 12:43 Date of Service: Apr 27, 2025 Billing Provider: CAMILLE PACHECO MD Common Visit Codes: [id number] INP/OBS CARE(HIGH) PRATIK CHAIREZ RESIDENT Apr 27, 2025 16:06
[2025-04-27] MEDS: PANTOPRAZOLE 40 MG TAB PO ONE (16:53)
[2025-04-27] MEDS ORDERED: POLYETHYLENE GLYCOL 17 GM PWDR PO PRN (17:45)
[2025-04-27] MEDS: HYDROcodone-ACET 5/325MG TAB PO PRN (21:57)
[2025-04-27] MEDS: DOCUSATE SOD 100 MG CAP PO SCH (22:00)
[2025-04-28] VITALS (8 sets, daily range): BP systolic 111–138; BP diastolic 79–91; PULSE 14–79; RESP 17–18; TEMP 97.8–99.7; O2SAT 90–95
[2025-04-28] MEDS: PANTOPRAZOLE 40 MG TAB PO SCH (05:50)
[2025-04-28 07:04] LABS: Alanine Aminotransferase 35 U/L (7-40); Albumin 3.9 g/dL (3.2-4.8); Alkaline Phosphatase 82 U/L (46-116); Anion Gap 11 (5-15); BUN/Creatinine Ratio 6.1 (10.0-20.0); Bilirubin, Total 1.0 mg/dL (0.2-1.0); Blood Urea Nitrogen 9 mg/dL (9-23); Carbon Dioxide 23 mmol/L (20-31); Chloride 106 mmol/L (98-107); Hematocrit 39.9 % (41.0-53.0); Hemoglobin 13.5 g/dL (13.5-17.5); Mean Corpuscular Hemoglobin 30.1 pg (28.0-32.0); Mean Corpuscular Volume 89.2 fL (80.0-100.0); Nucleated Red Blood Cells % 0.0 %; Potassium 3.8 mmol/L (3.5-5.1); Sodium 140 mmol/L (136-145); Total Protein 6.4 g/dL (5.7-8.2)
[2025-04-28 07:25] LABS: Calcium 8.3 mg/dL (8.7-10.4); Glucose 119 mg/dL (74-106)
[2025-04-28] MEDS: SODIUM CHLORIDE 0.9% 1,000 ML IV SCH (10:30)
--- NOTE | 2025-04-28 14:36 | DVHPNRES ---
Progress Note Date Seen: Apr 28, 2025 Resident Creating Document: PRATIK CHAIREZ RESIDENT Medical Necessity Reason Pt with a Central, PICC or Fol: No Subjective Review of Systems Brief history on admission: This is a 64-year-old male with a past medical history of BPH, chronic lower back pain, history of laminectomy, right inguinal hernia repair, who has come in with the chief complaints of left flank pain since today morning( 04/25/2025). Patient reports that he woke up at 3:00 a.m. due to left flank pain and the pain increased in intensity to around 5:00 a.m., was acute in nature, burning type, radiating to his left groin and associated with burning micturition, increased frequency and dysuria which prompted him to visit the emergency department. Patient reports that since he has been in the hospital he also noticed bright red blood in his urine today. He denies any nausea, vomiting, fever, chills, abdominal pain elsewhere, recent injury. On admission vitals were normal, CT of the abdomen and pelvis showed left moderate hydronephrosis, hydroureter, ureteral calculi of 4.5 mm in the proximal left ureter. We are admitting the patient for further workup and management. Past medical history: BPH, chronic lower back pain, gastritis past surgical history: Right inguinal hernia repair in 2023, history of laminectomy Family history: Reviewed and noncontributory to the management of this case Home medicines: Flomax, [place] 5 Social history: Denies alcohol, smoking, recreational drug use. Full code, next to kin is . Allergies: None PCP: Dr. Luciano ROS: Constitutional: Denies weight loss, fever and chills. HEENT: Denies changes in vision and hearing. Respiratory: Denies shortness of breath and cough Cardiovascular: Denies chest discomfort or palpitations GI: Abdominal pain. Denies nausea, vomiting, diarrhea, constipation. : Increased frequency of urination, burning micturition, dysuria. Musculoskeletal: Denies myalgias and joint pain Skin: Denies rash and pruritus. Neurological: Denies dizziness, headache, vision or hearing problems 04/27/2025: Patient continues to complain of severe abdominal pain, continue pain management, IV fluids and strain urine for passing calculus. 04/28/2025: Patient was examined at bedside today. Patient continues to complain of lower abdominal pain. Urology consulted. Objective vital signs Vital Sign Date Time Temp Pulse Resp B/P (MAP) Pulse Ox O2 Delivery O2 Flow Rate FiO2 04/28/25 14:29 78 17 134/87 04/28/25 08:00 94 Room Air* 0 21 04/28/25 05:00 97.8 97.8 Total Intake and Output 04/27/25 04/27/25 04/28/25 15:00 23:00 07:00 Intake Total 1050 ml 100 ml Balance 1050 ml 100 ml medications Current Medications Medications Dose Ordered Sig/Nadira Route Start Time Stop Time Status Last Admin Dose Admin Ondansetron HCl 4 mg Q4HP PRN IV 04/26/25 00:45 Acetaminophen 650 mg Q6HP PRN PO 04/26/25 00:45 04/28/25 12:02 650 MG Enoxaparin Sodium 40 mg DAILY SC 04/27/25 10:00 04/28/25 10:13 40 MG Ceftriaxone Sodium 50 ml @ 100 mls/hr DAILY@09 IV 04/27/25 09:00 04/28/25 09:15 100 MLS/HR Tamsulosin HCl 0.4 mg QPM PO 04/26/25 18:00 04/27/25 18:15 0.4 MG Hydromorphone HCl 0.5 mg Q4HPRN PRN IV 04/27/25 12:45 04/28/25 14:29 0.5 MG Pantoprazole Sodium 40 mg DAILY@0600 PO 04/28/25 06:00 04/28/25 05:50 40 MG Acetaminophen/ Hydrocodone Bitart 1 tab Q8HPRN PRN PO 04/27/25 17:45 04/28/25 06:44 1 TAB Docusate Sodium 100 mg BID PO 04/27/25 22:00 Polyethylene Glycol 17 gm DAILYPRN PRN PO 04/27/25 17:45 Sodium Chloride 1,000 ml @ 125 mls/hr Q8H IV 04/28/25 10:30 04/28/25 10:30 125 MLS/HR Examination General: Patient alert and oriented in person, place and time. Patient following commands. HEENT: Normocephalic, atraumatic, moist mucous membranes Respiratory/pulmonary: Clear lungs bilaterally, vesicular murmurs present in almost all lung nguyen, no associated crackles or wheezes. Cardiovascular: Normal heart sounds S1 and S2 with no associated murmurs Abdomen: Tenderness in the left flank area and left lower abdomen on light palpation Extremities: There is no peripheral edema present at the lower extremities. Peripheral Pulses: 3+ Radial (R). 3+ Radial (L). 3+ Dorsalis pedis (R). 3+ Dorsalis pedis(L) Skin: No rashes or pruritus, there is no sacral edema present at this time. Neurological: Intact cranial nerves with no focal neurologic deficits laboratory and microbiology Laboratory Tests 04/28/25 05:47 Test 04/28/25 05:47 Range/Units Serum Glucose 119 H 74-106 mg/dL Microbiology Date/Time Source Procedure Growth Status 04/26/25 04:36 Voided Urine Urine Culture - Final Complete Problem List/Assessment/Plan Problem List/Assessment/Plan Obstructive Left ureteral calculus Duplicate ureters Moderate left hydronephrosis and hydroureter RENITA hemodynamically mediated (VMN) CT abdomen and pelvis with contrast shows: Moderate left hydronephrosis and hydroureter with obstructing 4.5 mm calculus in the proximal left ureter Urine analysis normal Supportive management with IV Dilaudid, Zofran, IV fluids IV ceftriaxone 1 g daily Urology consulted Preliminary urine culture shows no growth. Diverticulosis without diverticulitis Small fat containing bilateral inguinal hernias CT- Scattered colonic diverticula without adjacent inflammatory changes to suggest diverticulitis, fat containing inguinal hernias. Continue clinical monitoring and outpatient follow up BPH Continue tamsulosin 0.4 mg p.o. daily Continue outpatient follow-up Hypokalemia Supplemented, monitor BMP Obesity, BMI 30.4 Counseled on lifestyle modifications DIET: Regular DVT PROPHYLAXIS: Lovenox GI PROPHYLAXIS: Protonix CODE STATUS: Goals of care discussed with patient at bedside for more than 17 minutes. Full code DISPOSITION: Med/surge Patient's status and plan discussed with the patient. Case discussed with Dr. Pacheco Plan discussed with: Patient, Other (Nurses) My Orders My Orders Orders - PRATIK CHAIREZ RESIDENT Procedure Category Date Status Time Pantoprazole Tablet PHA 04/28/25 In Process (Protonix Tablet) 06:00 Hydrocodone-Acet PHA 04/27/25 In Process 5/325mg Tab ([place] 17:45 Docusate Sodium PHA 04/27/25 In Process Capsule (Col[place] 22:00 Polyethylene Glycol PHA 04/27/25 In Process 17g Powder (Miralax 17:45 Date of Service: Apr 28, 2025 Billing Provider: CAMILLE PACHECO MD Common Visit Codes: [id number] INP/OBS CARE(HIGH) PRATIK CHAIREZ RESIDENT Apr 28, 2025 14:36
--- NOTE | 2025-04-28 15:30 | MEDREC ---
[facility] ASP Intervention Section I [facility] ASP Intervention: Deescalate AB based on CS (PLEASE CONSIDER D/C ANTIBIOTIC IN ABSENCE OF BACTERIAL INFECTION ) ZECHARIAH CHAVARRIA PHARMACIST Apr 28, 2025 15:30
--- NOTE | 2025-04-28 16:24 | DVHINCON2 ---
Date of service: Apr 28, 2025 Referring Physician hospitalist Reason for Consultation ureteral stone History of Present Illness History Source: Patient, RN Notes, MD Notes Exam Limitations: No limitations HPI 64-year-old male with a past medical history of BPH, chronic lower back pain, history of laminectomy, right inguinal hernia repair, who has come in with the chief complaints of left flank pain since today morning( 04/25/2025). Patient reports that he woke up at 3:00 a.m. due to left flank pain and the pain increased in intensity to 10 /10 around 5:00 a.m., was acute in nature, burning type, radiating to his left groin and associated with burning micturition, increased frequency and dysuria which prompted him to visit the emergency depart ment. Patient reports that since he has been in the hospital he also noticed bright red blood in his urine today. He denies any nausea, vomiting, fever, chills, abdominal pain elsewhere, recent injury. On admission vitals were normal, CT of the abdomen and pelvis showed left moderate hydronephrosis, hydroureter, ureteral calculi of 4.5 mm in the proximal left ureter. We are admitting the patient for further workup and management. Past medical history: BPH, chronic lower back pain past surgical history: Right inguinal hernia repair in 2023, history of laminectomy family history: Reviewed and noncontributory to the management of this case Home medicines: Flomax, May 5 Social history: Patient denies ever smoking or taking any illicit drugs. He does not drink alcohol now but used to occasionally drink when he was younger Allergies: None PCP: Dr. Luciano code status: full code Home Meds Active Scripts Benzonatate (Benzonatate) 200 Mg Cap, 1 CAP PO TID, #30 CAP Prov:GANGA WRIGHT MD 06/26/24 Hydrocodone-Acetaminophen (Hydrocodone Bitartrate/AC 5-325 mg) 1 Tab Tab, 1 TAB PO TID PRN, #30 TAB Prov:JORI ORTIZ MD 07/14/23 Metronidazole (Flagyl) 500 Mg Tab, 1 TAB PO TID, #30 TAB Prov:JORI ORTIZ MD 07/14/23 Levofloxacin Hemihydrate (LEVAQUIN 500 MG) 500 Mg Tab, 1 TAB PO DAILY, #10 TAB Prov:JORI ORTIZ MD 07/14/23 Reported Medications Loratadine (Claritin) 5 Mg/5 Ml Syp, 5 ML PO DAILY, #150 ML 2 Refills 07/10/23 Hydrocodone-Acetaminophen (Hydrocodone Bitartrate/AC 5-325 mg) 1 Tab Tab, 1 TAB PO, TAB 07/10/23 Tamsulosin Hcl (Tamsulosin Hcl) 0.4 Mg Cap, 1 CAP PO DAILY 07/10/23 Pantoprazole Sodium Sesquihydr (Pantoprazole Sodium) 40 Mg Tab, 1 TAB PO DAILY 07/10/23 Past Medical History Patient Family History: Patient reports no known family medical history. Review of Systems Genitourinary: Pain H&P Exam Vital Signs Vital Signs Date Time Temp Pulse Resp B/P (MAP) Pulse Ox O2 Delivery O2 Flow Rate FiO2 04/28/25 14:29 78 17 134/87 04/28/25 13:00 99.7 93 99.7 04/28/25 08:00 Room Air* 0 21 General Appeara: Well developed, Well nourished, Normal Appearance Neuro/Mental St: Alert, Oriented Appearance: Appropriate appearance, Appropriate insight Eye contact/ Speech: Cooperative, Good eye contact, Normal speech Skin Exam: Normal inspection, Normal color, Warm/dry Labs/Xrays [place] [id number] Ph: [phone] DIAGNOSTIC IMAGING Diagnostic Imaging Report : [id number] Signed PATIENT: AMBER MCKEON ACCT: [id number] UNIT: [id number] : 1960 LOC: ER ROOM / BED: / AGE / SEX: 64 / M ADM STATUS: REG ER SERVICE [id number] ORDERING PHYSICIAN: TUYET MCCAULEY PROCEDURE(s): ABPL - CT AB PEL WO CON-NO ORAL OR IV REASON: LEFT FLANK PAIN, HX OF KIDNEY STONE ORDER NUMBER(s): [id number], ACCESSION NUMBER(s): [id number] CLINICAL INFORMATION: Left flank pain. History of kidney stone. TECHNIQUE: Axial CT images of the abdomen and pelvis were obtained without IV contrast. Coronal and sagittal reformatted images were obtained, reviewed, and stored. Evaluation of the parenchymal organs is limited without IV contrast. Evaluation of the bowel and mesentery is limited without oral contrast. All CT scans at this medical facility are performed using dose modulation techniques as appropriate to a performed exam including the following: Automated exposure control was utilized; adjustment of the MA and/or KV according to patient size; and use of iterative reconstruction technique. CTDIvol = 12.49 mGy DLP = 647.45 mGy-cm COMPARISON: CT CT AB PEL WITH IV CON ONLY on DOS: 12/08/24, CT ABD PELVIS WO CONTRAST on DOS: 01/29/22 FINDINGS: Lung bases: Atelectasis in the lung bases. Liver: Grossly unremarkable in its noncontrast enhanced appearance. No abnormal density or focal lesion identified. Biliary: No calcified gallstones or biliary ductal dilatation. Spleen: Unremarkable. Pancreas: Grossly unremarkable in its noncontrast enhanced appearance. Adrenal glands: Unremarkable. No mass. Kidneys: Moderate left hydronephrosis with 4.5 mm obstructing calculus in the proximal left ureter. Aorta/Vascular: Scattered mild atherosclerotic calcification. No abdominal aortic aneurysm. Lymph nodes: No mass or lymphadenopathy. Bowel/mesentery: No small bowel obstruction. No free air or free fluid. Appendix is visualized and appears unremarkable. Scattered colonic diverticula without adjacent inflammatory changes to suggest diverticulitis. Pelvic organs: Enlarged prostate with impression on the bladder base. Bladder: Unremarkable. No mass. Abdominal wall: Small bilateral fat containing inguinal hernias. Bones: No acute fracture or suspicious intraosseous lesion. Postsurgical changes of posterior spinal fusion and interbody fusion at L3-L5. Surgical hardware appears intact. IMPRESSION: 1. Moderate left hydronephrosis and hydroureter with obstructing 4.5 mm calculus in the proximal left ureter. No other renal or ureteral calculi visualized. 2. Scattered colonic diverticula without adjacent inflammatory changes to suggest diverticulitis. 3. Small bilateral fat containing inguinal hernias. 4. Enlarged prostate. 5. Additional nonacute findings as detailed above. ATED BY: SANTIAGO ZAPATA DO DICTATED DATE/TIME: 04/25/25809 SIGNED BY: SANTIAGO ZAPATA DO SIGNED DATE/TIME: 04/25/25809 CC: [place] [address] Ph: [phone] DIAGNOSTIC IMAGING Diagnostic Imaging Report : [id number] Signed PATIENT: AMBER MCKEON ACCT: [id number] UNIT: [id number] : 1960 LOC: [facility] ROOM / BED: [facility] / A AGE / SEX: 64 / M ADM STATUS: ADM IN SERVICE 1056 ORDERING PHYSICIAN: TISHA DUMONT NP PROCEDURE(s): KIDUS - KIDNEY REASON: hydronephrosis, check for ureteral jets ORDER NUMBER(s): [id number], ACCESSION NUMBER(s): [id number] RENAL ULTRASOUND CLINICAL HISTORY: hydronephrosis, check for ureteral jets TECHNIQUE: Multiple grayscale ultrasound images were obtained through the kidneys and urinary bladder. COMPARISON: CT abdomen pelvis from 04/25/2025 FINDINGS: Right kidney: Measures 11.1 cm. No hydronephrosis. Left kidney: Measures 12.5 cm. Mild hydronephrosis. Urinary bladder: Unremarkable. Prevoid volume is 159.3 . Bilateral ureteral jets are visualized. IMPRESSION: 1. Mild Left hydronephrosis. 2. Bilateral ureteral jets are visualized. ATED BY: CARMEN JUNIOR MD DICTATED DATE/TIME: 04/27/25 1230 SIGNED BY: CARMEN JUNIOR MD SIGNED DATE/TIME: 04/27/25 1230 CC: Labs Test 04/28/25 05:47 04/26/25 04:36 04/26/25 03:46 04/25/25 23:39 Range/Units White Blood Count 11.1 H 4.4-10.8 10^3/uL Red Blood Count 4.48 L 4.5-5.90 10^6/uL Hemoglobin 13.5 13.5-17.5 g/dL Hematocrit 39.9 L 41.0-53.0 % Mean Corpuscular Volume 89.2 80.0-100.0 fL Mean Corpuscular Hemoglobin 30.1 28.0-32.0 pg Mean Corpuscular Hemoglobin Concent 33.7 32.0-36.0 g/dL Red Cell Distribution Width 13.2 11.8-14.3 % Platelet Count 181 140-450 10^3/uL Mean Platelet Volume 9.2 6.9-10.8 fL Neutrophils (%) (Auto) 81.8 H 37.0-80.0 % Lymphocytes (%) (Auto) 11.6 10.0-50.0 % Monocytes (%) (Auto) 6.1 0.0-12.0 % Eosinophils (%) (Auto) 0.2 0.0-7.0 % Basophils (%) (Auto) 0.3 0.0-2.0 % Neutrophils # (Auto) 9.1 H 1.6-8.6 10 ^3/uL Lymphocytes # (Auto) 1.3 0.4-5.4 10 ^3/uL Monocytes # (Auto) 0.7 0-1.3 10 ^3/uL Eosinophils # (Auto) 0 0-0.8 10 ^3/uL Basophils # (Auto) 0 0-0.2 10 ^3/uL Nucleated Red Blood Cells 0.0 % Sodium Level 140 136-145 mmol/L Potassium Level 3.8 3.5-5.1 mmol/L Chloride Level 106 98-107 mmol/L Carbon Dioxide Level 23 20-31 mmol/L Anion Gap 11 5-15 Blood Urea Nitrogen 9 9-23 mg/dL Creatinine 1.48 H 0.700-1.30 mg/dL Glomerular Filtration Rate Calc 53 >90 mL/min BUN/Creatinine Ratio 6.1 L 10.0-20.0 Serum Glucose 119 H 74-106 mg/dL Calcium Level 8.3 L 8.7-10.4 mg/dL Total Bilirubin 1.0 0.2-1.0 mg/dL Aspartate Amino Transferase (AST) 19 13-40 U/L Alanine Aminotransferase (ALT) 35 7-40 U/L Alkaline Phosphatase 82 46-116 U/L Total Protein 6.4 5.7-8.2 g/dL Albumin 3.9 3.2-4.8 g/dL Urine Color Colorless Yellow Urine Clarity Clear Clear Urine pH 6.0 5.0-9.0 Urine Specific [place] 1.009 1.001-1.035 Urine Protein Negative Negative Urine Ketones Negative Negative Urine Blood 2+ H Negative /uL Urine Nitrite Negative Negative Urine Bilirubin Negative Negative Urine Urobilinogen Normal Negative mg/dL Urine Leukocyte Esterase Negative Negative /uL Urine RBC 1 0 - 3 /hpf Urine Microscopic WBC < 1 0-3 /HPF Urine Squamous Epithelial Cells Few <5 /hpf Urine Bacteria None seen None Seen /hpf Urine Glucose Normal Normal mg/dL Urine Opiates Screen Neg NEGATIVE Urine Fentanyl Screen Neg NEGATIVE Urine Barbiturates Screen Neg NEGATIVE Urine Phencyclidine Screen Neg NEGATIVE Urine Amphetamines Screen Neg NEGATIVE Urine Benzodiazepines Screen Neg NEGATIVE Urine Cocaine Screen Neg NEGATIVE Urine Cannabinoids Screen Neg NEGATIVE Prothrombin Time 10.6 9.3-11.8 sec Prothrombin Time INR 1.00 0.9-1.15 Activated Partial Thromboplast Time 27.5 24.5-34.5 SEC Magnesium Level 2.1 1.6-2.6 mg/dL Direct Bilirubin 0.2 <0.3 mg/dL Microbiology Date/Time Source Procedure Growth Status 04/26/25 04:36 Voided Urine Urine Culture - Final Complete Assessment/Plan Problem List: (1) Hydronephrosis with renal calculous obstruction (2) Left renal stone Plan expulsive measures fluids pain control strain urine outpt lithotripsy if fails trial of passage Plan discussed with: Patient TISHA DUMONT NP Apr 28, 2025 16:24
[2025-04-29] VITALS (7 sets, daily range): BP systolic 121–157; BP diastolic 84–99; PULSE 64–86; RESP 17–18; TEMP 98.1–99; O2SAT 93–96
[2025-04-29 07:17] LABS: Hematocrit 37.5 % (41.0-53.0); Hemoglobin 13.1 g/dL (13.5-17.5); Mean Corpuscular Hemoglobin 31.0 pg (28.0-32.0); Mean Corpuscular Volume 89.2 fL (80.0-100.0); Nucleated Red Blood Cells % 0.0 %
[2025-04-29 07:27] LABS: Alanine Aminotransferase 32 U/L (7-40); Albumin 3.8 g/dL (3.2-4.8); Alkaline Phosphatase 81 U/L (46-116); Anion Gap 11 (5-15); BUN/Creatinine Ratio 6.1 (10.0-20.0); Blood Urea Nitrogen 10 mg/dL (9-23); Carbon Dioxide 23 mmol/L (20-31); Potassium 3.8 mmol/L (3.5-5.1); Sodium 141 mmol/L (136-145); Total Protein 6.3 g/dL (5.7-8.2)
[2025-04-29 07:28] LABS: Bilirubin, Total 1.1 mg/dL (0.2-1.0)
[2025-04-29 07:33] LABS: Calcium 8.4 mg/dL (8.7-10.4); Chloride 107 mmol/L (98-107); Glucose 117 mg/dL (74-106)
[2025-04-29] MEDS: IOHEXOL 300 MG/ML 100ML BOTTLE IJ ONE (09:14)
--- NOTE | 2025-04-29 09:36 | DVHPN2 ---
Progress Note - Dictate Date Seen: Apr 29, 2025 Medical Necessity Reason Pt with a Central, PICC or Fol: No vital signs Vital Sign Date Time Temp Pulse Resp B/P (MAP) Pulse Ox O2 Delivery O2 Flow Rate FiO2 04/29/25 05:00 98.5 86 17 129/88 (102) 95 98.5 04/28/25 20:00 Room Air* 0 21 Total Intake and Output 04/28/25 04/28/25 04/29/25 15:00 23:00 07:00 Intake Total 1050 ml 1005 ml 711 ml Balance 1050 ml 1005 ml 711 ml medications Current Medications Medications Dose Ordered Sig/Nadira Route Start Time Stop Time Status Last Admin Dose Admin Ondansetron HCl 4 mg Q4HP PRN IV 04/26/25 00:45 Acetaminophen 650 mg Q6HP PRN PO 04/26/25 00:45 04/28/25 12:02 650 MG Enoxaparin Sodium 40 mg DAILY SC 04/27/25 10:00 04/29/25 09:14 40 MG Ceftriaxone Sodium 50 ml @ 100 mls/hr DAILY@09 IV 04/27/25 09:00 04/29/25 09:14 100 MLS/HR Tamsulosin HCl 0.4 mg QPM PO 04/26/25 18:00 04/28/25 17:55 0.4 MG Hydromorphone HCl 0.5 mg Q4HPRN PRN IV 04/27/25 12:45 04/28/25 14:29 0.5 MG Pantoprazole Sodium 40 mg DAILY@0600 PO 04/28/25 06:00 04/29/25 05:17 40 MG Acetaminophen/ Hydrocodone Bitart 1 tab Q8HPRN PRN PO 04/27/25 17:45 04/29/25 05:18 1 TAB Docusate Sodium 100 mg BID PO 04/27/25 22:00 Polyethylene Glycol 17 gm DAILYPRN PRN PO 04/27/25 17:45 Sodium Chloride 1,000 ml @ 125 mls/hr Q8H IV 04/28/25 10:30 04/29/25 02:30 125 MLS/HR laboratory and microbiology Laboratory Tests 04/29/25 06:07 Test 04/29/25 06:07 Range/Units Serum Glucose 117 H 74-106 mg/dL Assessment/Plan continue expulsive measures if pain free ok to discharge home out pt follow up Problems(with codes): (1) Hydronephrosis with renal calculous obstruction Plan discussed with: Patient, Spouse TISHA DUMONT NP Apr 29, 2025 09:36
--- NOTE | 2025-04-29 11:13 | DVH ---
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 Intravenous contrast was administered during this examination. Portal venous imaging was o btained. Axial, coronal and sagittal multiplanar reformats were performed by the technologist on a [employer] workstation. Radiation Dose : 1. Abdomen/Pelvis: CTDIvol 16.62mGy, DLP 2650.69 mGy*cm. CONTRAST: Type of contrast: Omnipaque 300 Contrast injected: 100 ml Findings: Lung Bases: Trace bilateral pleural effusions with mild bibasilar atelectatic changes. Liver: The liver is normal in size. No focal lesions. Normal hepatic vascular enhancement. Gallbladder and Biliary Tree: Unremarkable Spleen: Unremarkable Pancreas: The pancreas is normal in appearance without focal lesions or abnormal enhancement. Adrenal Glands: Unremarkable Kidneys: Obstructing 5 mm distal left ureteric calculus has migrated slightly, now nearing the UVJ. 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 Common distal portion with distal obstructing calculus again noted. Bladder: Unremarkable Bowel: The stomach is grossly normal in appearance. Small bowel and colon are normal in caliber and d istribution. The appendix is not visualized; however, no secondary findings of acute appendicitis belkis ntified. Ascites: Trace pelvic free fluid. Lymphadenopathy: No mesenteric, retroperitoneal or periportal lymphadenopathy. Abdominal Wall and Mesentery: Unremarkable. Vasculature: The visualized abdominal aorta is normal in size and caliber. Abdominal and pelvic vess els demonstrate normal enhancement. Pelvic Organs: Unremarkable Musculoskeletal: No aggressive focal bony lesions, acute fractures or dislocation. IMPRESSION: Slight distal migration of the obstructing 5 mm left ureteric calculus. 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 Radiation optimization: All CT scans at this facility use at least one of these dose optimization umberto hniques: automated exposure control mA and/or kV adjustment per patient size (includes targeted exam s where dose is matched to clinical indication) or iterative reconstruction.
[2025-04-29] MEDS: SODIUM CHLORIDE 0.9% 500 ML IV ONE (12:47)
[2025-04-29 15:00] LABS: Chloride 107 mmol/L (98-107); Potassium 4.0 mmol/L (3.5-5.1); Sodium 142 mmol/L (136-145)
[2025-04-29 15:01] LABS: Anion Gap 10 (5-15); Carbon Dioxide 25 mmol/L (20-31)
[2025-04-29 15:06] LABS: BUN/Creatinine Ratio 8.3 (10.0-20.0); Blood Urea Nitrogen 13 mg/dL (9-23); Glucose 96 mg/dL (74-106)
[2025-04-29 15:07] LABS: Calcium 8.3 mg/dL (8.7-10.4)
--- NOTE | 2025-04-29 17:11 | DVHDSRES ---
Discharge Summary Date of Admission Resident Creating Document: PRATIK CHAIREZ RESIDENT Apr 26, 2025 at 00:35 Date of Discharge: Apr 29, 2025 Labs/Diagnostic Data: Laboratory Results Test 04/29/25 14:30 04/29/25 06:07 04/26/25 04:36 04/26/25 03:46 Sodium Level 142 mmol/L (136-145) Potassium Level 4.0 mmol/L (3.5-5.1) Chloride Level 107 mmol/L (98-107) Carbon Dioxide Level 25 mmol/L (20-31) Anion Gap 10 (5-15) Blood Urea Nitrogen 13 mg/dL (9-23) Creatinine 1.56 mg/dL (0.700-1.30) Glomerular Filtration Rate Calc 49 mL/min (>90) BUN/Creatinine Ratio 8.3 (10.0-20.0) Serum Glucose 96 mg/dL (74-106) Calcium Level 8.3 mg/dL (8.7-10.4) White Blood Count 8.7 10^3/uL (4.4-10.8) Red Blood Count 4.21 10^6/uL (4.5-5.90) Hemoglobin 13.1 g/dL (13.5-17.5) Hematocrit 37.5 % (41.0-53.0) Mean Corpuscular Volume 89.2 fL (80.0-100.0) Mean Corpuscular Hemoglobin 31.0 pg (28.0-32.0) Mean Corpuscular Hemoglobin Concent 34.8 g/dL (32.0-36.0) Red Cell Distribution Width 13.6 % (11.8-14.3) Platelet Count 173 10^3/uL (140-450) Mean Platelet Volume 9.0 fL (6.9-10.8) Neutrophils (%) (Auto) 77.0 % (37.0-80.0) Lymphocytes (%) (Auto) 15.0 % (10.0-50.0) Monocytes (%) (Auto) 7.0 % (0.0-12.0) Eosinophils (%) (Auto) 0.6 % (0.0-7.0) Basophils (%) (Auto) 0.4 % (0.0-2.0) Neutrophils # (Auto) 6.7 10 ^3/uL (1.6-8.6) Lymphocytes # (Auto) 1.3 10 ^3/uL (0.4-5.4) Monocytes # (Auto) 0.6 10 ^3/uL (0-1.3) Eosinophils # (Auto) 0.1 10 ^3/uL (0-0.8) Basophils # (Auto) 0 10 ^3/uL (0-0.2) Nucleated Red Blood Cells 0.0 % Total Bilirubin 1.1 mg/dL (0.2-1.0) Aspartate Amino Transferase (AST) 23 U/L (13-40) Alanine Aminotransferase (ALT) 32 U/L (7-40) Alkaline Phosphatase 81 U/L (46-116) Total Protein 6.3 g/dL (5.7-8.2) Albumin 3.8 g/dL (3.2-4.8) Urine Color Colorless (Yellow) Urine Clarity Clear (Clear) Urine pH 6.0 (5.0-9.0) Urine Specific [place] 1.009 (1.001-1.035) Urine Protein Negative (Negative) Urine Ketones Negative (Negative) Urine Blood 2+ /uL (Negative) Urine Nitrite Negative (Negative) Urine Bilirubin Negative (Negative) Urine Urobilinogen Normal mg/dL (Negative) Urine Leukocyte Esterase Negative /uL (Negative) Urine RBC 1 /hpf (0 - 3) Urine Microscopic WBC < 1 /HPF (0-3) Urine Squamous Epithelial Cells Few /hpf (<5) Urine Bacteria None seen /hpf (None Seen) Urine Glucose Normal mg/dL (Normal) Urine Opiates Screen Neg (NEGATIVE) Urine Fentanyl Screen Neg (NEGATIVE) Urine Barbiturates Screen Neg (NEGATIVE) Urine Phencyclidine Screen Neg (NEGATIVE) Urine Amphetamines Screen Neg (NEGATIVE) Urine Benzodiazepines Screen Neg (NEGATIVE) Urine Cocaine Screen Neg (NEGATIVE) Urine Cannabinoids Screen Neg (NEGATIVE) Test 04/25/25 23:39 Prothrombin Time 10.6 sec (9.3-11.8) Prothrombin Time INR 1.00 (0.9-1.15) Activated Partial Thromboplast Time 27.5 SEC (24.5-34.5) Magnesium Level 2.1 mg/dL (1.6-2.6) Direct Bilirubin 0.2 mg/dL (<0.3) Other Laboratory Tests 04/29/25 14:30 04/29/25 06:07 Brief Hx & Hospital Course: History on admission: This is a 64-year-old male with a past medical history of BPH, chronic lower back pain, history of laminectomy, right inguinal hernia repair, who has come in with the chief complaints of left flank pain since 04/25/2025. Patient reports that he woke up at 3:00 a.m. due to left flank pain and the pain increased in intensity to 10 /10 around 5:00 a.m., was acute in nature, burning type, radiating to his left groin and associated with burning micturition, increased frequency and dysuria which prompted him to visit the emergency department. Patient reports that since he has been in the hospital he also noticed bright red blood in his urine today. 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 Brief hospital course: Patient was admitted due to intractable abdominal pain, his initial labs revealed hypokalemia. CT abdomen and pelvis with contrast showed moderate left hydronephrosis and hydroureter with obstructing 4.5 mm calculus in the proximal left ureter. Scattered colonic diverticula without adjacent inflammatory changes to suggest diverticulitis, fat containing inguinal hernias were also seen on CT abdomen. Supportive management with IV Dilaudid, Zofran, IV fluids, tamsulosin was started. urine culture showed no growth. 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 Urology was consulted, recommended expulsive measures, lithotripsy in outpatient if needed. Patient is stable for discharge and will follow Urology in outpatient clinic. Conditions managed during stay: Obstructive Left ureteral calculus Duplicate ureters Moderate left hydronephrosis and hydroureter RENITA hemodynamically mediated (VMN) Diverticulosis without diverticulitis Small fat containing bilateral inguinal hernias BPH Hypokalemia, resolved Obesity, BMI 30.4 Plan: Continue home medications Follow with PCP in 1 week Follow with Urology in outpatient clinic Consults/Reason for consult Urology was consulted, recommended straining urine to pass kidney stone, CT urogram. Outpatient lithotripsy if needed. Operations or Procedures Exam: CT CT AB PELVIS W WO CON-IV ONLY History: Duplicate ureters r/o obstructing stone COMPARISON: XY KUB ABDOMEN SINGLE VIEW on DOS: 04/27/25, CT ABD PELVIS WO CONTRAST on DOS: 01/29/22 Technique: Multidetector spiral CT of the abdomen and pelvis was performed from lung bases to pubic symphysis. Intravenous contrast was administered during this examination. Portal venous imaging was obtained. Axial, coronal and sagittal multiplanar reformats were performed by the technologist on a separate workstation. Radiation Dose : 1. Abdomen/Pelvis: CTDIvol 16.62mGy, DLP 2650.69 mGy*cm. CONTRAST: Type of contrast: Omnipaque 300 Contrast injected: 100 ml Findings: Lung Bases: Trace bilateral pleural effusions with mild bibasilar atelectatic changes. Liver: The liver is normal in size. No focal lesions. Normal hepatic vascular enhancement. Gallbladder and Biliary Tree: Unremarkable Spleen: Unremarkable Pancreas: The pancreas is normal in appearance without focal lesions or abnormal enhancement. Adrenal Glands: Unremarkable Kidneys: Obstructing 5 mm distal left ureteric calculus has migrated slightly, now nearing the UVJ. 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 Common distal portion with distal obstructing calculus again noted. Bladder: Unremarkable Bowel: The stomach is grossly normal in appearance. Small bowel and colon are normal in caliber and distribution. The appendix is not visualized; however, no secondary findings of acute appendicitis identified. Ascites: Trace pelvic free fluid. Lymphadenopathy: No mesenteric, retroperitoneal or periportal lymphadenopathy. Abdominal Wall and Mesentery: Unremarkable. Vasculature: The visualized abdominal aorta is normal in size and caliber. Abdominal and pelvic vessels demonstrate normal enhancement. Pelvic Organs: Unremarkable Musculoskeletal: No aggressive focal bony lesions, acute fractures or dislocation. IMPRESSION: Slight distal migration of the obstructing 5 mm left ureteric calculus. 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 Radiation optimization: All CT scans at this facility use at least one of these dose optimization techniques: automated exposure control mA and/or kV adjustment per patient size (includes targeted exams where dose is matched to clinical indication) or iterative reconstruction. RENAL ULTRASOUND CLINICAL HISTORY: hydronephrosis, check for ureteral jets TECHNIQUE: Multiple grayscale ultrasound images were obtained through the kidneys and urinary bladder. COMPARISON: CT abdomen pelvis from 04/25/2025 FINDINGS: Right kidney: Measures 11.1 cm. No hydronephrosis. Left kidney: Measures 12.5 cm. Mild hydronephrosis. Urinary bladder: Unremarkable. Prevoid volume is 159.3 . Bilateral ureteral jets are visualized. IMPRESSION: 1. Mild Left hydronephrosis. 2. Bilateral ureteral jets are visualized. Indication: ureter stone left Technique: Single frontal view of the abdomen was obtained Comparison: CT CT AB PEL WO CON-NO ORAL OR IV on DOS: 04/25/25, CT CT AB PEL WITH IV CON ONLY on DOS: 12/08/24, CT ABD PELVIS WO CONTRAST on DOS: 01/29/22 IMPRESSION: Bowel-gas pattern is nonobstructed. No pathologic calcification. 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 Lumbar fusion hardware. Condition at Discharge: Stable Final Diagnosis/Problems List Obstructive Left ureteral calculus Duplicate ureters Moderate left hydronephrosis and hydroureter RENITA hemodynamically mediated (VMN) Diverticulosis without diverticulitis Small fat containing bilateral inguinal hernias BPH Hypokalemia, resolved Obesity, BMI 30.4 Discharge Disposition: Home Discharge Instruct/Medications Diet: Renal Activity: No Restrictions, As Tolerated Follow Up/Referral: Please follow up with PCP in 1-2 weeks Please follow up with Urology in the outpatient clinic Scheduled Benzonatate (Benzonatate), 1 CAP PO TID Levofloxacin Hemihydrate (Levaquin 500 Mg), 1 TAB PO DAILY Loratadine (Claritin), 5 ML PO DAILY, (Reported) Metronidazole (Flagyl), 1 TAB PO TID Pantoprazole Sodium Sesquihydr (Pantoprazole Sodium), 1 TAB PO DAILY, (Reported) Tamsulosin Hcl (Tamsulosin Hcl), 1 CAP PO DAILY, (Reported) Scheduled PRN Hydrocodone-Acetaminophen (Hydrocodone Bitartrate/AC 5-325 mg), 1 TAB PO TID PRN Miscellaneous Medications Hydrocodone-Acetaminophen (Hydrocodone Bitartrate/AC 5-325 mg), 1 TAB PO, (Reported) Discharge Statement: "Patient was advised to return to the ER or call 911 if any headaches, dizziness, shortness of breath, chest pain, abdominal pain, bleeding, fevers, or worsening of medical condition. Patient was counseled about treatment plan, medications, possible side effects, patientverbalized understanding. All questions were answered to the best of my ability. This discharge took greater then 30 minutes in planning, reviewing documentation, counseling the patient, and discussing with other team members." ASSESSMENT ASSESSMENT Assessment Obstructive Left ureteral calculus Duplicate ureters Moderate left hydronephrosis and hydroureter RENITA hemodynamically mediated (VMN) CT abdomen and pelvis with contrast shows: Moderate left hydronephrosis and hydroureter with obstructing 4.5 mm calculus in the proximal left ureter Urine analysis normal Supportive management with IV Dilaudid, Zofran, IV fluids IV ceftriaxone 1 g daily Urology consulted Preliminary urine culture shows no growth. Diverticulosis without diverticulitis Small fat containing bilateral inguinal hernias CT- Scattered colonic diverticula without adjacent inflammatory changes to suggest diverticulitis, fat containing inguinal hernias. Continue clinical monitoring and outpatient follow up BPH Continue tamsulosin 0.4 mg p.o. daily Continue outpatient follow-up Hypokalemia Supplemented, monitor BMP Obesity, BMI 30.4 Date of Service: Apr 29, 2025 Billing Provider: CAMILLE HERNANDEZ MD Common Visit Codes: 31617-CVQ/OBS DISCH DAY >30min PRATIK CHAIREZ RESIDENT Apr 29, 2025 17:11
== END 2025-04-29 18:46 | disposition home or self-care (01) | DRG 694 ==
LOC: ER 23:24 → OVERFLOW 04-26 00:35 → WEST WING 04-26 22:46
PROVIDERS: ADMIT Internal Medicine Geriatric Medicine; ATTEND Internal Medicine Geriatric Medicine
DX: N13.2 Hydronephrosis with renal and ureteral calculous obstruction (principal); N40.0 Benign prostatic hyperplasia without lower urinary tract symptoms; K40.20 Bilateral inguinal hernia, without obstruction or gangrene, not specified as recurrent; N17.0 Acute kidney failure with tubular necrosis; K57.30 Diverticulosis of large intestine without perforation or abscess without bleeding; Z68.30 Body mass index [BMI] 30.0-30.9, adult; E66.9 Obesity, unspecified; G89.29 Other chronic pain; M54.50 Low back pain, unspecified; Z87.442 Personal history of urinary calculi; Z79.899 Other long term (current) drug therapy
CPT/HCPCS: 36415; 74018; 74178; 76775; 80048; 80053; 80076; 80307; 81001; 83735; 85025; 85610; 85730; 87086; G0378